=== PATIENT | female | born 1995 | race Caucasian/White ===

== ENCOUNTER 2017-01-05 18:51 | Emergency (ER) | payer SELFPAY ==
[2017-01-05] MEDS ORDERED: OXYCODONE-ACETAMINOPHEN 5-325 MG TABLET PO ONE (19:18)
--- NOTE | 2017-01-05 19:21 | ER Document Report ---
HPI - HPI Patient complains to provider of: Left foot, ankle and knee pain Onset: Just prior to arrival Onset/Duration: Sudden Quality of pain: Throbbing Severity: Moderate Pain Level: 4 Context: Patient states the board on deck collapsed causing her to roll her right foot, ankle and knee. Pain, swelling and bruising. Associated Symptoms: None Exacerbated by: Movement, Walking Relieved by: Denies Similar symptoms previously: No Recently seen / treated by doctor: No - ROS ROS below otherwise negative: Yes Systems Reviewed and Negative: Yes All other systems reviewed and negative - CONSTITUTIONAL Constitutional: DENIES: Fever - EENT EENT: DENIES: Sore Throat - NEURO Neurology: DENIES: Headache - CARDIOVASCULAR Cardiovascular: DENIES: Chest pain - RESPIRATORY Respiratory: DENIES: Trouble Breathing - GASTROINTESTINAL Gastrointestinal: DENIES: Abdominal Pain - REPRODUCTIVE Reproductive: DENIES: : - MUSCULOSKELETAL Musculoskeletal: REPORTS: Extremity pain, Swelling - Right foot - DERM Skin Color: Ecchymosis Skin Problems: None Past Medical History - General Information source: Patient - Social History Smoking Status: Never Smoker Frequency of alcohol use: None Drug Abuse: None Lives with: Family Family History: Reviewed & Not Pertinent, Hyperlipidemia, Malignancy, Other - ovarian cyst Patient has suicidal ideation: No Patient has homicidal ideation: No Neurological Medical History: Reports: Hx Migraine Past Surgical History: Reports: Hx Adenoidectomy, Hx Orthopedic Surgery - Knees , Hx Tonsillectomy - adenoids, Hx Tubal Ligation - Immunizations Immunizations up to date: Yes Hx Diphtheria, Pertussis, Tetanus Vaccination: Yes Vertical Provider Document - CONSTITUTIONAL Agree With Documented VS: Yes General Appearance: WD/WN, Mild Distress - INFECTION CONTROL TRAVEL OUTSIDE OF THE [place] IN LAST 30 DAYS: No - HEENT HEENT: Atraumatic, Normocephalic - RESPIRATORY Respiratory: Breath Sounds Normal, No Respiratory Distress O2 Sat by Pulse Oximetry: 99 - CARDIOVASCULAR Cardiovascular: Regular Rate, Regular Rhythm - GI/ABDOMEN Gastrointestinal: Abdomen Soft - MUSCULOSKELETAL/EXTREMETIES Musculoskeletal/Extremeties: Tender, Edema, Eccymosis - Right lateral foot - NEURO Level of Consciousness: Awake, Alert, Appropriate - DERM Integumentary: Warm, Dry Course - Re-evaluation Re-evalutation: 01/05/17 20:19 X-rays negative and discussed with patient. - Vital Signs Vital signs: Temp Pulse Resp BP Pulse Ox 98.1 F 78 22 H 117/68 99 01/05/17 18:57 01/05/17 18:57 01/05/17 18:57 01/05/17 18:57 01/05/17 18:57 Procedures - Immobilization Right Foot Pre-Proc Neuro Vasc Exam: Normal Immobilizer type: Shimon wrap, Crutches Performed by: PCT Post-Proc Neuro Vasc Exam: Normal Alignment checked and good: Yes Discharge - Discharge Clinical Impression: Right foot sprain Qualifiers: Encounter type: initial encounter Qualified Code(s): S93.601A - Unspecified sprain of right foot, initial encounter Right knee pain Qualifiers: Chronicity: acute Qualified Code(s): M25.561 - Pain in right knee Condition: Good Disposition: HOME, SELF-CARE Instructions: Sprain ([facility]), Use of Crutches ([facility]), Ice & Elevation ([facility]), Oral Narcotic Medication ([facility]) Additional Instructions: Ice and elevate foot OTC ibuprofen 3 times a day as needed for pain Follow-up with your doctor if not better in 1 week return as needed Prescriptions: Oxycodone HCl/Acetaminophen [Percocet 5-325 mg Tablet] 1 - 2 tab PO ASDIR PRN # 15 tablet PRN Reason: For Pain Forms: Return to Work Referrals: MYNOR FULTON MD [Primary Care Provider] - Follow up as needed
--- NOTE | 2017-01-05 20:15 | RADIOLOGY REPORT (SQ) ---
EXAM DESCRIPTION: FOOT RIGHT COMPLETE COMPLETED DATE/TIME: 01/05/2017 8:01 pm REASON FOR STUDY: injury COMPARISON: None. NUMBER OF VIEWS: Three views. TECHNIQUE: AP, lateral and oblique radiographic images acquired of the right foot. LIMITATIONS: None. FINDINGS: MINERALIZATION: Normal. BONES: No acute fracture or dislocation. No worrisome bone lesions. JOINTS: No effusions. SOFT TISSUES: No soft tissue swelling. No foreign body. OTHER: No other significant finding. IMPRESSION: NO RADIOGRAPHIC EVIDENCE OF ACUTE INJURY. TECHNICAL DOCUMENTATION: JOB ID: [id number] [employer]- All Rights Reserved
--- NOTE | 2017-01-05 20:16 | RADIOLOGY REPORT (SQ) ---
EXAM DESCRIPTION: KNEE RIGHT 4 VIEWS COMPLETED DATE/TIME: 01/05/2017 8:01 pm REASON FOR STUDY: injury COMPARISON: None. NUMBER OF VIEWS: Four views. TECHNIQUE: AP, lateral, and both oblique radiographic images acquired of the right knee. LIMITATIONS: None. FINDINGS: MINERALIZATION: Normal. BONES: No acute fracture or dislocation. No worrisome bone lesions. JOINT: No effusion. SOFT TISSUES: No soft tissue swelling. No radio-opaque foreign body. OTHER: No other significant finding. IMPRESSION: NO RADIOGRAPHIC EVIDENCE OF ACUTE INJURY. TECHNICAL DOCUMENTATION: JOB ID: [id number] [employer]- All Rights Reserved
[2017-01-05 20:44] VITALS: BP 123/67
== END 2017-01-05 20:43 | disposition home or self-care (01) ==
LOC: ER 18:51
DX: S93.601A Unspecified sprain of right foot, initial encounter (principal); M25.561 Pain in right knee; M25.572 Pain in left ankle and joints of left foot; X50.1XXA Overexertion from prolonged static or awkward postures, initial encounter
CPT/HCPCS: 99283

== ENCOUNTER 2017-07-02 14:15 | Emergency (ER) | payer SELFPAY ==
[2017-07-02] MEDS ORDERED: IBUPROFEN 800 MG TABLET PO ONE (16:38)
[2017-07-02] MEDS ORDERED: PENICILLIN V POTASSIUM 500 MG TABLET PO ONE (16:38)
--- NOTE | 2017-07-02 16:41 | ER Document Report ---
HPI - HPI Patient complains to provider of: Dental pain, jaw pain Onset: Last week Onset/Duration: Persistent Quality of pain: Sharp Pain Level: 5 Context: Patient complains of pain to bilateral upper jaw for the past week. Patient states pain is worse when she opens her mouth. Patient denies any fever. Associated Symptoms: Other - Dental pain, jaw pain. denies: Fever Exacerbated by: Movement Relieved by: Denies Similar symptoms previously: No Recently seen / treated by doctor: No - ROS ROS below otherwise negative: Yes Systems Reviewed and Negative: Yes All other systems reviewed and negative - CONSTITUTIONAL Constitutional: DENIES: Fever, Chills - EENT Notes: Dental pain - RESPIRATORY Respiratory: DENIES: Coughing - GASTROINTESTINAL Gastrointestinal: DENIES: Nausea, Patient vomiting - REPRODUCTIVE Reproductive: DENIES: : - DERM Skin Color: Normal Skin Problems: None Past Medical History - General Information source: Patient - Social History Smoking Status: Never Smoker Frequency of alcohol use: None Drug Abuse: 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: Family Family History: Reviewed & Not Pertinent, Hyperlipidemia, Malignancy, Other - ovarian cyst - Medical History Medical History: Negative Neurological Medical History: Reports: Hx Migraine Renal/ Medical History: Denies: Hx Peritoneal Dialysis Past Surgical History: Reports: Hx Adenoidectomy, Hx Orthopedic Surgery - Knees , Hx Tonsillectomy - adenoids, Hx Tubal Ligation - Immunizations Immunizations up to date: Yes Hx Diphtheria, Pertussis, Tetanus Vaccination: Yes Vertical Provider Document - CONSTITUTIONAL Agree With Documented VS: Yes Exam Limitations: No Limitations General Appearance: WD/WN, No Apparent Distress - INFECTION CONTROL TRAVEL OUTSIDE OF THE [place] IN LAST 30 DAYS: No - HEENT HEENT: Atraumatic, Normocephalic. negative: Pharyngeal Exudate, Pharyngeal Tenderness, Pharyngeal Erythema, Tympanic Membrane Red, Tympanic Membrane Bulging Mouth Diagram: 1 - Dental decay, tenderness, no gingival abscess, no trismus Notes: Patient with tenderness to TMJ joints bilaterally, no crepitus, normal bite - NECK Neck: Normal Inspection, Supple - RESPIRATORY Respiratory: Breath Sounds Normal, No Respiratory Distress O2 Sat by Pulse Oximetry: 99 - CARDIOVASCULAR Cardiovascular: Regular Rate, Regular Rhythm, No Murmur - BACK Back: Normal Inspection - MUSCULOSKELETAL/EXTREMETIES Musculoskeletal/Extremeties: WENDI WHIPPLE - NEURO Level of Consciousness: Awake, Alert, Appropriate Motor/Sensory: No Motor Deficit - DERM Integumentary: Warm, Dry, No Rash Course - Vital Signs Vital signs: Temp Pulse Resp BP Pulse Ox 99.2 F 87 13 114/60 99 07/02/17 14:19 07/02/17 14:19 07/02/17 14:19 07/02/17 14:19 07/02/17 14:19 Discharge - Discharge Clinical Impression: Toothache TMJ arthralgia Qualifiers: Laterality: bilateral Qualified Code(s): M26.623 - Arthralgia of bilateral temporomandibular joint Condition: Stable Disposition: HOME, SELF-CARE Instructions: Oral Narcotic Medication ([facility]), Penicillin V K ([facility]), Temporomandibular Joint Syndrome ([facility]), Toothache ([facility]) Additional Instructions: Return immediately for any new or worsening symptoms Followup with your primary care provider, call tomorrow to make a followup appointment Follow-up with a dental care provider Prescriptions: Acetaminophen with Codeine [Acetaminophen-Cod #3 Tablet] 1 each PO Q6 PRN #15 tablet PRN Reason: Naproxen [Naprosyn 250 Nmg Tablet] 1 tab PO BID #14 tablet Penicillin V Potassium [Penicillin Vk 500 mg Tablet] 500 mg PO BID #20 tablet Forms: Return to Work Referrals: [facility] [Provider Group] - Follow up as needed
[2017-07-02 16:53] VITALS: BP 110/65
== END 2017-07-02 16:53 | disposition home or self-care (01) ==
LOC: ER 14:15
DX: K08.9 Disorder of teeth and supporting structures, unspecified (principal); M26.623 Arthralgia of bilateral temporomandibular joint; Z98.51 Tubal ligation status
CPT/HCPCS: 99282

== ENCOUNTER 2018-06-12 19:28 | Emergency (ER) | payer SELFPAY ==
[2018-06-12 19:43] VITALS: BP 117/63
[2018-06-12] MEDS ORDERED: LIDOCAINE 2% VISCOUS SOLN 20 ML UDCUP PO ONE (20:08)
--- NOTE | 2018-06-12 20:17 | ER Document Report ---
HPI - HPI Pain Level: 5 Notes: Patient is a 22-year-old female who presents to the ED complaining of right lower dental pain #301 week. She has not noticed any obvious abscess or purulent discharge. Patient states that she is still able to eat and drink, but does have a decreased p.o. intake due to the pain. She has tried some over- the-counter meds with minimal relief. No other concerns or complaints. She has not schedule an appointment with a dentist. Overall, pt states she has had issues with her teeth for months. Denies any headache, fever, head injury, neck pain, hoarseness, drooling, URI, sore throat, chest pain, palpitations, syncope, cough, shortness of breath, wheeze, dyspnea, abdominal pain, nausea/ vomiting/diarrhea, urinary retention, dysuria, hematuria, or rash. - ROS Systems Reviewed and Negative: Yes All other systems reviewed and negative - REPRODUCTIVE Reproductive: DENIES: : Past Medical History - Social History Smoking Status: Unknown if Ever Smoked Family History: Reviewed & Not Pertinent, Hyperlipidemia, Malignancy, Other - ovarian cyst Neurological Medical History: Reports: Hx Migraine Renal/ Medical History: Denies: Hx Peritoneal Dialysis Past Surgical History: Reports: Hx Adenoidectomy, Hx Orthopedic Surgery - Knees , Hx Tonsillectomy - adenoids, Hx Tubal Ligation - Immunizations Immunizations up to date: Yes Hx Diphtheria, Pertussis, Tetanus Vaccination: Yes Vertical Provider Document - CONSTITUTIONAL Agree With Documented VS: Yes Notes: PHYSICAL EXAMINATION: GENERAL: Well-appearing, well-nourished and in no acute distress. HEAD: Atraumatic, normocephalic. EYES: Pupils equal round and reactive to light, extraocular movements intact, sclera anicteric, conjunctiva are normal. ENT: Nares patent and without discharge. oropharynx clear without exudates. No tonsilar hypertrophy or erythema. Moist mucous membranes. No sinus tenderness. Uvula midline. No palatine shift. No tongue protrusion. No respiratory compromise. Mouth: Poor dentition. + mild gingivitis. No obvious abscess or discharge noted. No facial swelling. + tenderness to tooth #30. NECK: Normal range of motion, supple without lymphadenopathy. No rigidity/ meningismus. LUNGS: Breath sounds clear to auscultation bilaterally and equal. No wheezes rales or rhonchi. HEART: Regular rate and rhythm without murmurs, rubs, gallops. NEUROLOGICAL: Cranial nerves grossly intact. Normal speech, normal gait. Normal sensory, motor exams PSYCH: Normal mood, normal affect. SKIN: Warm, Dry, normal turgor, no rashes or lesions noted. - INFECTION CONTROL TRAVEL OUTSIDE OF THE [place] IN LAST 30 DAYS: No Course - Re-evaluation Re-evalutation: 06/12/18 20:16 Patient is an afebrile, well-hydrated, 22-year-old female who presents to the ED with dental pain, suspect nerve root etiology versus infection. Vitals are acceptable. PE is otherwise unremarkable. No I&D, labs, or imaging warranted at this time based on H&P. Viscous lidocaine dispensed today. I will send her home with a prescription for penicillin. Low suspicion for any meningitis, sepsis, peritonsillar/pharyngeal abscess, respiratory compromise, Peña's, temporal arteritis, or other emergent systemic condition at this time. Patient is aware this condition can change from initial presentation and he needs to monitor symptoms closely. Conservative measures otherwise for symptoms. Call to schedule an appointment with a dentist for further evaluation and management. Recheck with your PCM this week as well. Return to the ED with any worsening/concerning symptoms otherwise as reviewed in discharge. Patient is in agreement. - Vital Signs Vital signs: Temp Pulse Resp BP Pulse Ox 98.4 F 67 16 117/63 98 06/12/18 19:41 06/12/18 19:41 06/12/18 19:41 06/12/18 19:41 06/12/18 19:41 Discharge - Discharge Clinical Impression: Pain, dental Condition: Stable Disposition: HOME, SELF-CARE Instructions: Penicillin V K ([facility]), Toothache ([facility]), Dentist Additional Instructions: [place] and floss twice daily Maintain fluid intake Take antibiotics as directed Mouthwash, salt water gargles, peroxide rinse as needed Tylenol/ibuprofen as needed Recheck with PCM this week Call today/tomorrow and schedule an appointment with your dentist for further evaluation Return to the ED with any worsening symptoms and/or development of fever, headache, facial swelling, swelling of lips/tongue/throat, trouble swallowing, drooling, hoarseness, neck pain/stiffness, chest pain, palpitations, syncope, shortness of breath, trouble breathing, abdominal pain, n/v/d, numbness/tingling , or other worsening symptoms that are concerning to you. Prescriptions: Penicillin V Potassium [Penicillin Vk 250 mg Tablet] 500 mg PO BID #40 tablet Referrals: MYNOR FULTON MD [Primary Care Provider] - Follow up as needed [facility] [Provider Group] - Follow up in 3-5 days
== END 2018-06-12 20:15 | disposition home or self-care (01) ==
LOC: ER 19:28
DX: K08.89 Other specified disorders of teeth and supporting structures (principal); K05.10 Chronic gingivitis, plaque induced
CPT/HCPCS: 99282; J3490

== ENCOUNTER 2019-01-02 12:55 | Emergency (ER) | payer SELFPAY ==
[2019-01-02] MEDS ORDERED: KETOROLAC TROMETHAMINE INJ/PF 30 MG/1 ML SDV IV ONE (13:23)
[2019-01-02] MEDS ORDERED: ONDANSETRON HCL INJ/PF 4 MG/2 ML SDV IV ONE (13:24)
--- NOTE | 2019-01-02 13:24 | ER Document Report ---
ED Medical Screen (RME) - General Chief Complaint: Abdominal Pain Stated Complaint: ABDOMINAL PAIN Time Seen by Provider: 01/02/19 13:20 Primary Care Provider: MYNOR FULTON MD [Primary Care Provider] - Follow up as needed Mode of Arrival: Ambulatory Information source: Patient Notes: Patient is otherwise healthy 23-year-old female presented to the [facility] with 3-day history of right flank and right lower quadrant pain. Patient denies any urinary frequency or dysuria. She reports nausea with vomiting but denies diarrhea. Denies fever chills. Exam: Tenderness to palpation the right lower quadrant. I have greeted and performed a rapid initial assessment of this patient. A comprehensive ED assessment and evaluation of the patient, analysis of test results and completion of the medical decision making process will be conducted by additional ED providers. Dictation of this chart was performed using voice recognition software; therefore, there may be some unintended grammatical errors. TRAVEL OUTSIDE OF THE [place] IN LAST 30 DAYS: No - Related Data Allergies/Adverse Reactions: No Known Allergies Allergy (Verified 01/02/19 12:57) Past Medical History Neurological Medical History: Reports: Hx Migraine Renal/ Medical History: Denies: Hx Peritoneal Dialysis Past Surgical History: Reports: Hx Adenoidectomy, Hx Orthopedic Surgery - Knees, Hx Tonsillectomy - adenoids, Hx Tubal Ligation - Immunizations Immunizations up to date: Yes Hx Diphtheria, Pertussis, Tetanus Vaccination: Yes Physical Exam - Vital signs Vitals: Temp Pulse Resp BP Pulse Ox 98.3 F 83 15 105/65 97 01/02/19 13:01 01/02/19 13:01 01/02/19 13:01 01/02/19 13:01 01/02/19 13:01 Course - Vital Signs Vital signs: Temp Pulse Resp BP Pulse Ox 98.3 F 83 15 105/65 97 01/02/19 13:01 01/02/19 13:01 01/02/19 13:01 01/02/19 13:01 01/02/19 13:01 Doctor's Discharge - Discharge Referrals: MYNOR FULTON MD [Primary Care Provider] - Follow up as needed
[2019-01-02 14:25] LABS: ABSOLUTE EOSINOPHILS # (AUTO) 0.6 10^3/uL (0.0-0.6); ABSOLUTE LYMPHOCYTES (AUTO) 1.9 10^3/uL (0.5-4.7); ABSOLUTE MONOCYTES (AUTO) 0.3 10^3/uL (0.1-1.4); ABSOLUTE NEUT (AUTO) 2.9 10^3/uL (1.7-8.2); BASOPHILS % (AUTO) 0.6 % (0-2); EOSINOPHILS % (AUTO) 11.2 % (0-6); HEMATOCRIT 40.5 % (36.0-47.0); HEMOGLOBIN 13.8 g/dL (12.0-15.5); LYMPHOCYTES % (AUTO) 32.5 % (13-45); MEAN CORPUSCULAR HEMOGLOBIN 29.1 pg (27.0-33.4); MEAN CORPUSCULAR HGB CONC 34.1 g/dL (32.0-36.0); MEAN CORPUSCULAR VOLUME 85 fl (80-97); MONOCYTES % (AUTO) 5.8 % (3-13); PLATELET COUNT 243 10^3/uL (150-450); RED BLOOD COUNT 4.74 10^6/uL (3.72-5.28); SEGMENTED NEUTROPHILS % (AUTO) 49.9 % (42-78); TOTAL CELLS COUNTED % (AUTO) 100 %; WHITE BLOOD COUNT 5.8 10^3/uL (4.0-10.5)
[2019-01-02 14:34] LABS: AMORPHOUS SEDIMENT,URINE TRACE /HPF; APPEARANCE,URINE SLIGHTLY-CLOUDY; BILIRUBIN,URINE NEGATIVE (NEGATIVE); COLOR,URINE YELLOW; GLUCOSE, URINE NEGATIVE (NEGATIVE); KETONES,URINE NEGATIVE (NEGATIVE); LEUKOCYTE ESTERASE,URINE MODERATE (NEGATIVE); NITRITE,URINE NEGATIVE (NEGATIVE); PROTEIN,URINE NEGATIVE (NEGATIVE); URINE SPECIFIC GRAVITY 1.012; UROBILINOGEN,URINE NEGATIVE mg/dL (<2.0)
[2019-01-02 14:47] LABS: ALANINE AMINOTRANSFERASE 37 U/L (9-52); ALBUMIN 4.2 g/dL (3.5-5.0); ALKALINE PHOSPHATASE 51 U/L (38-126); ANION GAP 10 (5-19); ASPARTATE AMINO TRANSFERASE 37 U/L (14-36); BILIRUBIN,DIRECT 0.2 mg/dL (0.0-0.4); BLOOD UREA NITROGEN 12 mg/dL (7-20); CALCIUM 9.5 mg/dL (8.4-10.2); CARBON DIOXIDE 25 mmol/L (22-30); CHLORIDE 105 mmol/L (98-107); GLUCOSE 88 mg/dL (75-110); POTASSIUM 4.4 mmol/L (3.6-5.0); SODIUM 140.2 mmol/L (137-145); TOTAL PROTEIN 7.5 g/dL (6.3-8.2)
[2019-01-02] MEDS ORDERED: MORPHINE SULFATE 10 MG/ML INJ IV ONE (15:39)
[2019-01-02] MEDS ORDERED: METOCLOPRAMIDE HCL INJ/PF 10 MG/2 ML SDV IV ONE (15:39)
[2019-01-02] MEDS ORDERED: DIPHENHYDRAMINE HCL 50 MG/ML VIAL IV ONE (15:39)
--- NOTE | 2019-01-02 16:08 | ER Document Report ---
ED General - General Chief Complaint: Abdominal Pain Stated Complaint: ABDOMINAL PAIN Time Seen by Provider: 01/02/19 13:20 Primary Care Provider: MYNOR FULTON MD [ACTIVE STAFF] - Follow up in 3-5 days Mode of Arrival: Ambulatory Information source: Patient, [facility] Records Notes: 23-year-old female with no significant past medical history presents with 3 days of right flank pain and right lower quadrant pain. Patient reports the pain as being severe, stabbing and constant. Patient reports persistent nausea, vomiting that started today. She is unable to tolerate any p.o. She denies any fever, chills, vaginal discharge, dysuria. She does report increased urinary frequency. Patient is not currently sexually active. She denies concern for STD. She denies any history of kidney stones. TRAVEL OUTSIDE OF THE [place] IN LAST 30 DAYS: No - HPI Onset: Other Onset/Duration: Gradual, Persistent, Worse Quality of pain: Sharp, Stabbing Severity: Moderate Pain Level: 2 Associated symptoms: Body/muscle aches, Nausea, Vomiting, Other - Flank pain. denies: Chest pain, Nonproductive cough, Productive cough, Diarrhea, Fever Exacerbated by: Movement, Food Relieved by: Denies Similar symptoms previously: No Recently seen / treated by doctor: No - Related Data Allergies/Adverse Reactions: No Known Allergies Allergy (Verified 01/02/19 12:57) Past Medical History - General Information source: Patient - Social History Smoking Status: Never Smoker Frequency of alcohol use: None Drug Abuse: None Lives with: Family Family History: Reviewed & Not Pertinent, Hyperlipidemia, Malignancy, Other - ovarian cyst Patient has suicidal ideation: No Patient has homicidal ideation: No - Medical History Medical History: Negative Neurological Medical History: Reports: Hx Migraine Renal/ Medical History: Denies: Hx Peritoneal Dialysis Past Surgical History: Reports: Hx Adenoidectomy, Hx Orthopedic Surgery - Knees, Hx Tonsillectomy - adenoids, Hx Tubal Ligation - Immunizations Immunizations up to date: Yes Hx Diphtheria, Pertussis, Tetanus Vaccination: Yes Review of Systems - Review of Systems Notes: REVIEW OF SYSTEMS: CONSTITUTIONAL : Denies fever, chills, or sweats. Denies recent illness. Denies weight loss, recent hospitalizations. EENT: Denies visual changes, eye pain. Denies sore throat, oral lesions, difficulty swallowing. CARDIOVASCULAR: Denies chest pain. Denies palpitations. Denies lower extremity edema. RESPIRATORY: Denies cough. Denies shortness of breath, wheezing. GASTROINTESTINAL: Denies abdominal distention. Denies diarrhea. Denies blood in vomitus, stools, or per rectum. Denies black, tarry stools. Denies constipation. GENITOURINARY: Denies difficulty urinating, painful urination, frequency, blood in urine, or vaginal discharge. MUSCULOSKELETAL: Denies neck pain or stiffness. Denies joint pain or swelling. SKIN: Denies rash, lesions or sores. HEMATOLOGIC : Denies easy bruising or bleeding. LYMPHATIC: Denies swollen glands. NEUROLOGICAL: Denies confusion or altered mental status. Denies loss of consciousness. Denies dizziness or lightheadedness. Denies headache. Denies weakness or paralysis. Denies problems difficulty with ambulation, slurred speech. Denies sensory loss, numbness, or tingling. Denies seizures. PSYCHIATRIC: Denies anxiety or stress. Denies depression, suicidal ideation, or homicidal ideation. Denies visual or auditory hallucinations. Physical Exam - Vital signs Vitals: Temp Pulse Resp BP Pulse Ox 98.3 F 80 15 105/64 97 01/02/19 13:00 01/02/19 13:00 01/02/19 13:00 01/02/19 13:01/02/19 13:00 - Notes Notes: PHYSICAL EXAMINATION: GENERAL: Well-appearing, well-nourished and in no acute distress. HEAD: Atraumatic, normocephalic. EYES: Pupils equal round and reactive to light, extraocular movements intact, conjunctiva are normal. ENT: Nares patent, oropharynx clear without exudates. Moist mucous membranes. NECK: Normal range of motion, supple without lymphadenopathy LUNGS: Breath sounds clear to auscultation bilaterally and equal. No wheezes rales or rhonchi. HEART: Regular rate and rhythm without murmurs ABDOMEN: Soft, tenderness with palpation to the right lower quadrant. No gua rding, no rebound. No masses appreciated. Right flank tenderness. Female : deferred Musculoskeletal: Normal range of motion, no pitting or edema. No cyanosis. NEUROLOGICAL: Cranial nerves grossly intact. Normal speech, normal gait. Normal sensory, motor exams PSYCH: Normal mood, normal affect. SKIN: Warm, Dry, normal turgor, no rashes or lesions noted. Course - Re-evaluation Re-evalutation: 01/03/19 01:49 Laboratory 01/02/19 01/02/19 01/02/19 14:02 14:02 14:02 WBC 5.8 RBC 4.74 Hgb 13.8 Hct 40.5 MCV 85 MCH 29.1 MCHC 34.1 RDW 13.0 Plt Count 243 Seg Neutrophils % 49.9 Lymphocytes % 32.5 Monocytes % 5.8 Eosinophils % 11.2 H Basophils % 0.6 Absolute Neutrophils 2.9 Absolute Lymphocytes 1.9 Absolute Monocytes 0.3 Absolute Eosinophils 0.6 Absolute Basophils 0.0 Sodium 140.2 Potassium 4.4 Chloride 105 Carbon Dioxide 25 Anion Gap 10 BUN 12 Creatinine 0.46 L Est GFR ( Amer) > 60 Est GFR (Non-Af Amer) > 60 Glucose 88 Calcium 9.5 Total Bilirubin 1.0 Direct Bilirubin 0.2 Neonat Total Bilirubin Not Reportable Neonat Direct Bilirubin Not Reportable Neonat Indirect Bili Not Reportable AST 37 H ALT 37 Alkaline Phosphatase 51 Total Protein 7.5 Albumin 4.2 Serum HCG, Qual NEGATIVE Urine Color Urine Appearance Urine pH Ur Specific [place] Urine Protein Urine Glucose (UA) Urine Ketones Urine Blood Urine Nitrite Urine Bilirubin Urine Urobilinogen Ur Leukocyte Esterase Urine WBC (Auto) Urine RBC (Auto) Squamous Epi Cells Auto Amorphous Sediment Auto Urine Mucus (Auto) Urine Ascorbic Acid 01/02/19 14:02 WBC RBC Hgb Hct MCV MCH MCHC RDW Plt Count Seg Neutrophils % Lymphocytes % Monocytes % Eosinophils % Basophils % Absolute Neutrophils Absolute Lymphocytes Absolute Monocytes Absolute Eosinophils Absolute Basophils Sodium Potassium Chloride Carbon Dioxide Anion Gap BUN Creatinine Est GFR ( Amer) Est GFR (Non-Af Amer) Glucose Calcium Total Bilirubin Direct Bilirubin Neonat Total Bilirubin Neonat Direct Bilirubin Neonat Indirect Bili AST ALT Alkaline Phosphatase Total Protein Albumin Serum HCG, Qual Urine Color YELLOW Urine Appearance SLIGHTLY-CLOUDY Urine pH 8.0 Ur Specific [place] 1.012 Urine Protein NEGATIVE Urine Glucose (UA) NEGATIVE Urine Ketones NEGATIVE Urine Blood NEGATIVE Urine Nitrite NEGATIVE Urine Bilirubin NEGATIVE Urine Urobilinogen NEGATIVE Ur Leukocyte Esterase MODERATE H Urine WBC (Auto) 7 Urine RBC (Auto) 1 Squamous Epi Cells Auto 1 Amorphous Sediment Auto TRACE Urine Mucus (Auto) RARE Urine Ascorbic Acid NEGATIVE Abdomen/Pelvis CT 01/02/19 15:39 IMPRESSION: NO SIGNIFICANT OR ACUTE FINDING IN THE ABDOMEN OR PELVIS ON CT SCAN WITH IV CONTRAST. Temp Pulse Resp BP Pulse Ox 97.9 F 70 16 103/62 100 01/02/19 20:13 01/02/19 20:13 01/02/19 20:13 01/02/19 20:13 01/02/19 20:13 01/03/19 21:40 Patient presents with symptoms consistent with an acute cystitis. Vitals wnl. No history of fever, flank pain, or constitution symptoms to suggest ascending infection at this time. Patient is well in appearance, tolerating oral intake without difficulty. No focal abdominal tenderness to suggest acute appendicitis, biliary pathology, acute pancreatitis, tubo-ovarian abscesses, or pelvic inflammatory disease. Patient will be started on antibiotics at this time. A culture has been sent. They will be discharged with return precautions and follow-up recommendations. I have had a risks and benefits conversation with the patient regarding CT imaging of the abdomen and pelvis at this time. 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 We discussed the risks of radiation to the abdomen and pelvis. We discussed the alternative of close follow-up with their primary care physician for a recheck of the abdomen within 24 hours as well as reasons to return to the emergency department. After this conversation, the patient has elected to avoid CT esperanza ging of the abdomen and pelvis at this time. They have capacity. They have verbalized the importance of close follow-up as well as reasons to return to the emergency department including worsening abdominal pain, fever, persistent vomiting, or any other symptoms that are worrisome to them. - Vital Signs Vital signs: Temp Pulse Resp BP Pulse Ox 97.9 F 70 16 103/62 100 01/02/19 20:15 01/02/19 20:15 01/02/19 20:15 01/02/19 20:15 01/02/19 20:15 - Laboratory Result Diagrams: 01/02/19 14:02 01/02/19 14:02 Laboratory results interpreted by me: 01/02/19 01/02/19 01/02/19 14:02 14:02 14:02 Eosinophils % 11.2 H Creatinine 0.46 L AST 37 H Ur Leukocyte Esterase MODERATE H - Diagnostic Test Radiology reviewed: Image reviewed, Reports reviewed Discharge - Discharge Clinical Impression: Right lower quadrant abdominal pain, Right flank pain UTI (urinary tract infection) Qualifiers: Urinary tract infection type: site unspecified Hematuria presence: without hematuria Qualified Code(s): N39.0 - Urinary tract infection, site not specified Condition: Good Disposition: HOME, SELF-CARE Instructions: Abdominal Pain ([facility]), Flank Pain ([facility]), Observation for Appendicitis ([facility]), Urinary Tract Infection ([facility]) Additional Instructions: Your urine shows findings consistent with a urinary tract infection. Please take all the antibiotics as directed even if your symptoms have improved. Please follow-up with your primary care physician as needed. Return to emergency room if you develop fever >101F, persistent vomiting, become lethargic, have severe pain in your sides, or any other symptoms that are concerning to you. Prescriptions: Ketorolac Tromethamine [Toradol 10 mg Tablet] 10 mg PO Q6HP PRN #12 tablet PRN Reason: Cephalexin Monohydrate [Keflex 500 mg Capsule] 500 mg PO BID 5 Days #10 capsule Ondansetron [Zofran Odt 4 mg Tablet] 1 - 2 tab PO Q4H PRN #15 tab.rapdis PRN Reason: For Nausea/Vomiting Referrals: MYNOR FULTON MD [ACTIVE STAFF] - Follow up in 3-5 days
--- NOTE | 2019-01-02 18:03 | RADIOLOGY REPORT (SQ) ---
EXAM DESCRIPTION: CT ABD/PELVIS WITH IV ONLY COMPLETED DATE/TIME: 01/02/2019 5:44 pm REASON FOR STUDY: rlq and r flank pain COMPARISON: None. TECHNIQUE: CT scan of the abdomen and pelvis performed using helical scanning technique with dynamic intravenous contrast injection. No oral contrast. Images reviewed with lung, soft tissue, and bone windows. Reconstructed coronal and sagittal MPR images reviewed. Delayed images for evaluation of the urinary system also acquired. All images stored on PACS. All CT scanners at this facility use dose modulation, iterative reconstruction, and/or weight based d osing when appropriate to reduce radiation dose to as low as reasonably achievable (ALARA). [facility]: Dose Right [facility]: CareDose [facility]: Dose Right [facility]: Teradose 4D [facility]: SocialDiabetes CONTRAST TYPE AND DOSE: contrast/concentration: Isovue 350.00 mg/ml; Total Contrast Delivered: 89.0 ml; Total Saline Delivered: 70.0 ml RENAL FUNCTION: GFR > 60. RADIATION DOSE: CT Rad equipment meets quality standard of care and radiation dose reduction techniq ues were employed. CTDIvol: 8.4 - 10.8 mGy. DLP: 991 mGy-cm.. LIMITATIONS: None. FINDINGS: LOWER CHEST: No significant findings. No nodules or infiltrates. LIVER: Normal size. No masses. No dilated ducts. SPLEEN: Normal size. No focal lesions. PANCREAS: No masses. No significant calcifications. No adjacent inflammation or peripancreatic fluid collections. Pancreatic duct not dilated. GALLBLADDER: No identified stones by CT criteria. No inflammatory changes to suggest cholecystitis. ADRENAL GLANDS: No significant masses or asymmetry. RIGHT KIDNEY AND URETER: No solid masses. No significant calcifications. No hydronephrosis or hyd roureter. LEFT KIDNEY AND URETER: No solid masses. No significant calcifications. No hydronephrosis or hydr oureter. AORTA AND VESSELS: No aneurysm. No dissection. Renal arteries, SMA, celiac without stenosis. RETROPERITONEUM: No retroperitoneal adenopathy, hemorrhage or masses. BOWEL AND PERITONEAL CAVITY: No masses or inflammatory changes. No free fluid or peritoneal masses. APPENDIX: Normal. PELVIS: No mass. No free fluid. Normal bladder. ABDOMINAL WALL: No masses. No hernias. BONES: No significant or acute findings. OTHER: No other significant finding. IMPRESSION: NO SIGNIFICANT OR ACUTE FINDING IN THE ABDOMEN OR PELVIS ON CT SCAN WITH IV CONTRAST. TECHNICAL DOCUMENTATION: JOB ID: [id number] Quality ID # [id number]: Final reports with documentation of one or more dose reduction techniques (e.g., Au tomated exposure control, adjustment of the mA and/or kV according to patient size, use of iterative reconstruction technique) 2010 [employer]- All Rights Reserved Reading location - IP/workstation name: [email or web address]
[2019-01-02] MEDS ORDERED: CEPHALEXIN 500 MG CAPSULE PO ONE (18:31)
[2019-01-02 20:22] VITALS: BP 103/62
== END 2019-01-02 20:20 | disposition home or self-care (01) ==
LOC: ER 12:55
DX: N39.0 Urinary tract infection, site not specified (principal); R10.31 Right lower quadrant pain; R11.2 Nausea with vomiting, unspecified; M79.10 Myalgia, unspecified site; Z98.51 Tubal ligation status
CPT/HCPCS: 99284; 96374; 96375; 36415; 84703; 85025; 80053; 81001; 74177; J1200; J1885; J2765; J2270; J2405

== ENCOUNTER 2019-08-24 09:01 | Emergency (ER) | payer SELFPAY ==
[2019-08-24] MEDS ORDERED: KETOROLAC TROMETHAMINE INJ/PF 30 MG/1 ML SDV IM ONE (11:00)
--- NOTE | 2019-08-24 11:05 | ER Document Report ---
HPI - HPI Time Seen by Provider: 08/24/19 10:54 Pain Level: 4 Context: Patient is a 23-year-old female who presents the emergency department with a chief complaint of low back pain. Patient reports she developed low back pain about 4 days ago that has gradually gotten worse over the past 2 days. Patient reports she is taken Tylenol, uses warm compresses and took a Benadryl last night to help her sleep and she did have not have relief. Patient reports that there was no injury or fall. Patient denies any recent heavy lifting, stretching or any new exercise. Patient reports she just got off her menstrual cycle. Patient denies a history of back problems. Patient has numbness or tingling around the groin or rectal region. Patient denies IV drug use. - REPRODUCTIVE Reproductive: DENIES: : Past Medical History - General Information source: Patient - Social History Smoking Status: Never Smoker Frequency of alcohol use: Rare Drug Abuse: None Lives with: Family Family History: Reviewed & Not Pertinent, Hyperlipidemia, Malignancy, Other - ovarian cyst Patient has suicidal ideation: No Patient has homicidal ideation: No - Past Medical History Cardiac Medical History: Reports: None Pulmonary Medical History: Reports: None EENT Medical History: Reports: None Neurological Medical History: Reports: Hx Migraine Endocrine Medical History: Reports: None Renal/ Medical History: Reports: None. Denies: Hx Peritoneal Dialysis Malignancy Medical History: Reports: None GI Medical History: Reports: None Musculoskeletal Medical History: Reports None Skin Medical History: Reports None Psychiatric Medical History: Reports: None Traumatic Medical History: Reports: None Infectious Medical History: Reports: None Past Surgical History: Reports: Hx Adenoidectomy, Hx Orthopedic Surgery - Knees, Hx Tonsillectomy - adenoids, Hx Tubal Ligation - Immunizations Immunizations up to date: Yes Hx Diphtheria, Pertussis, Tetanus Vaccination: Yes Vertical Provider Document - CONSTITUTIONAL Agree With Documented VS: Yes Exam Limitations: No Limitations General Appearance: No Apparent Distress - INFECTION CONTROL TRAVEL OUTSIDE OF THE [place] IN LAST 30 DAYS: No - HEENT HEENT: Atraumatic, Normal ENT Exam, Normocephalic, PERRLA - NECK Neck: Normal Inspection - RESPIRATORY Respiratory: Breath Sounds Normal, No Respiratory Distress - CARDIOVASCULAR Cardiovascular: Regular Rate, Regular Rhythm - BACK Back: Normal Inspection Notes: Patient has diffuse minimal tenderness to the lumbar muscles. There is no lumbar midline tenderness with palpation. There is no cervical or thoracic midline tenderness with palpation. No CVA tenderness. - MUSCULOSKELETAL/EXTREMETIES Musculoskeletal/Extremeties: FROM, Non-Tender Notes: Patient has a steady gait. No difficulty ambulating. - NEURO Level of Consciousness: Awake, Alert, Appropriate - DERM Integumentary: Warm, Dry, No Rash Course - Re-evaluation Re-evalutation: 08/24/19 11:04 I do not believe that imaging is necessary at this time as there is no injury or fall. Will obtain a urinalysis to rule out urinary tract infection. We will give the patient a shot of Toradol. Will reevaluate. Patient updated on plan of care. 08/24/19 12:20 Patient reports that her lower back pain has subsided after receiving the Toradol injection. We will give the patient a few muscle relaxers to go home with as well as anti-inflammatories. I did inform the patient do not drive or operate heavy machinery while on the muscle relaxer if she needs it. Patient verbalized understanding. Patient encouraged to rest. - Vital Signs Vital signs: Temp Pulse Resp BP Pulse Ox 99.7 F 101 H 18 141/75 H 100 08/24/19 09:20 08/24/19 09:20 08/24/19 09:20 08/24/19 09:20 08/24/19 09:20 - Laboratory Laboratory results interpreted by me: 08/24/19 12:20 Laboratory 08/24/19 11:11 Urine Color YELLOW Urine Appearance CLEAR Urine pH 6.0 Ur Specific [place] 1.026 Urine Protein NEGATIVE Urine Glucose (UA) NEGATIVE Urine Ketones 20 H Urine Blood NEGATIVE Urine Nitrite NEGATIVE Urine Bilirubin NEGATIVE Urine Urobilinogen NEGATIVE Ur Leukocyte Esterase TRACE H Urine WBC (Auto) 3 Urine RBC (Auto) 2 Urine Bacteria (Auto) TRACE Squamous Epi Cells Auto 2 Urine Mucus (Auto) OCC Urine Ascorbic Acid NEGATIVE Discharge - Discharge Clinical Impression: Low back pain Qualifiers: Chronicity: acute Back pain laterality: bilateral Sciatica presence: without sciatica Qualified Code(s): M54.5 - Low back pain Condition: Stable Disposition: HOME, SELF-CARE Additional Instructions: *Today was seen in the emergency department for low back pain. We have given you an injection of Toradol which is an anti-inflammatory that did seem to help subside your discomfort. I will give you a prescription for Toradol, take only as prescribed. I will also give you a few doses of Flexeril which is a muscle relaxer. Do not drive or operate heavy machinery while on this medication. Please rest over the next few days. Please return the emergency department if you develop any new or worsening symptoms. We did check your urinalysis which did not show any signs of infection. Low Back Pain Three out of every four people will have an episode of disabling back pain during their lifetime. Most commonly the pain is due to straining of the muscles and ligaments in the low back. Usual treatment includes: (1) Rest on a firm surface. Avoid lying on your stomach. (2) Ice pack the painful area. After a few days, gentle heat may be used intermittently to relax the area, or ice packs can be continued. (3) Medication may be needed -- muscle relaxers and antiinflammatory medicines are commonly used. (4) As the back improves, exercises are prescribed to strengthen the back and abdominal muscles. Your doctor will advise you on the proper care for your back at each stage in your recovery. You may be better in a few days -- or healing may take several weeks. If new symptoms of a "herniated disc" (radiation of pain, numbness, or tingling down the back of the leg or weakness in the leg) occur, you should be re-examined. Further testing may be necessary. Prescriptions: Cyclobenzaprine HCl [Flexeril 10 mg Tablet] 10 mg PO TIDP PRN #12 tab PRN Reason: Ketorolac Tromethamine [Toradol 10 mg Tablet] 10 mg PO Q8 #12 tablet Referrals: [facility] [Provider Group] - Follow up as needed
[2019-08-24 11:43] LABS: APPEARANCE,URINE CLEAR; BILIRUBIN,URINE NEGATIVE (NEGATIVE); COLOR,URINE YELLOW; GLUCOSE, URINE NEGATIVE (NEGATIVE); KETONES,URINE 20 mg/dL (NEGATIVE); LEUKOCYTE ESTERASE,URINE TRACE (NEGATIVE); NITRITE,URINE NEGATIVE (NEGATIVE); PROTEIN,URINE NEGATIVE (NEGATIVE); URINE SPECIFIC GRAVITY 1.026; UROBILINOGEN,URINE NEGATIVE mg/dL (<2.0)
[2019-08-24 12:18] VITALS: BP 99/57
== END 2019-08-24 12:27 | disposition home or self-care (01) ==
LOC: ER 09:01
DX: M54.5 Low back pain (principal)
CPT/HCPCS: 99283; 96374; 81001; J1885

== ENCOUNTER → 2019-11-27 | Outpatient (CLI) | payer SELFPAY ==
--- NOTE | 2019-11-27 16:41 | RADIOLOGY REPORT (SQ) ---
EXAM DESCRIPTION: U/S OB 14+ TRNABD 1GES W/O DOP IMAGES COMPLETED DATE/TIME: 11/27/2019 4:18 pm REASON FOR STUDY: (Z34.82)ENCOUNTER FOR SUPRVSN OF NORMAL , SECOND TRIMESTER Z34.[address] FOR SUPRVSN OF NORMAL , SECOND TRI COMPARISON: None. TECHNIQUE: Limited transabdominal grayscale ultrasound for evaluation of specific requested obstetri nikky parameters. LIMITATIONS: None. FINDINGS: CERVICAL LENGTH: 3.2 cm. Closed. BOWEN: 10.9 cm. FHR: 147 beats per minute. PRESENTATION: Breech. PLACENTA: Anterior location. ANATOMY: Not assessed OTHER: Estimated weight is 88 g. estimated due date is 05/26/2020. Estimated gestational age i s 14 weeks 1 day. IMPRESSION: LIMITED OBSTETRICAL ULTRASOUND WITH MEASURED PARAMETERS DELINEATED ABOVE. Trimester of : Second trimester - 13 weeks 1 day to 27 weeks 6 days. TECHNICAL DOCUMENTATION: JOB ID: [id number] 2010 [employer]- All Rights Reserved Reading location - IP/workstation name: [email or web address]
== END ==
LOC: RAD 15:16
PROVIDERS: ATTEND Midwife
DX: Z34.82 Encounter for supervision of other normal pregnancy, second trimester (principal); Z3A.14 14 weeks gestation of pregnancy
CPT/HCPCS: 76805

== ENCOUNTER 2019-12-24 18:29 | Outpatient (CLI) | payer SELFPAY ==
[2019-12-24 19:17] LABS: APPEARANCE,URINE CLEAR; BILIRUBIN,URINE NEGATIVE (NEGATIVE); COLOR,URINE YELLOW; GLUCOSE, URINE NEGATIVE (NEGATIVE); KETONES,URINE NEGATIVE (NEGATIVE); LEUKOCYTE ESTERASE,URINE MODERATE (NEGATIVE); NITRITE,URINE NEGATIVE (NEGATIVE); PROTEIN,URINE NEGATIVE (NEGATIVE); URINE SPECIFIC GRAVITY 1.016; UROBILINOGEN,URINE NEGATIVE mg/dL (<2.0)
[2019-12-24 19:18] LABS: BACTERIA (WET MOUNT) 4+ BACTERIA SEEN; EPITHELIALS (WET MOUNT) 4+ EPITHELIALS SEEN; RBCS (WET MOUNT) FEW RBCS SEEN; T.VAGINALIS (WET MOUNT) NO TRICHOMONAS SEEN; WBCS (WET MOUNT) 3+ WBCS SEEN; YEAST (WET MOUNT) NO YEAST SEEN
[2019-12-24 19:32] LABS: URINE AMPHETAMINES SCREEN NEGATIVE; URINE BARBITURATES SCREEN NEGATIVE; URINE BENZODIAZEPINES SCREEN NEGATIVE; URINE COCAINE SCREEN NEGATIVE; URINE MARIJUANA (THC) SCREEN NEGATIVE; URINE METHADONE SCREEN NEGATIVE; URINE PHENCYCLIDINE SCREEN NEGATIVE
[2019-12-24 20:44] LABS: CHLAM PCR NOT DETECTED (NOT DETECT)
== END 2019-12-24 20:53 | disposition home or self-care (01) ==
LOC: LC 18:29
PROVIDERS: ATTEND Obstetrics & Gynecology Gynecology
DX: O26.899 Other specified pregnancy related conditions, unspecified trimester (principal); R10.30 Lower abdominal pain, unspecified; Z3A.22 22 weeks gestation of pregnancy
CPT/HCPCS: 59899; 87210; 81001; 80307; 87491; 87591; Q0114

== ENCOUNTER → 2020-01-09 | Outpatient (CLI) | payer SELFPAY ==
--- NOTE | 2020-01-09 14:53 | RADIOLOGY REPORT (SQ) ---
EXAM DESCRIPTION: U/S OB 14+ TRNABD 1GES W/O DOP IMAGES COMPLETED DATE/TIME: 01/09/2020 2:38 pm REASON FOR STUDY: Z34.82 ENCOUNTER FOR SUPRVSN OF NORMAL , SECOND TRIMESTER Z34.82 ENCOUNT ER FOR SUPRVSN OF NORMAL , SECOND TRI COMPARISON: None. TECHNIQUE: Static and Dynamic grayscale imaging performed of gravid uterus using transabdominal appr oach. Additional selected color Doppler and spectral images recorded. All stored on PACS. LIMITATIONS: None. FINDINGS: FETUSES SEEN:1 EGA: 20 week 5 day. Calculated using BPD,FL,HC,AC documented on images. No discrepancy with clinical dates. LACY: 05/23/2020. EFW: 341 grams PERCENTILE: Not applicable. LVP: 5.2 x 5.7 cm. PLACENTA: Anterior. PRESENTATION: Breech. ANATOMY: HEART RATE: 143 beats per minute. FOUR CHAMBER HEART: Visualized. THREE VESSEL CORD: Yes. CORD INSERTION: Visualized. KIDNEYS AND BLADDER: Visualized. Appear normal. STOMACH: Visualized. Appears normal. SPINE: Normal as visualized. BRAIN AND LATERAL VENTRICLES: Visualized. Appear normal. OTHER: No other significant finding. MATERNAL ADNEXA: Maternal ovaries not visualized. CERVICAL LENGTH: 3.1 cm. Closed. OTHER: No other significant finding. IMPRESSION: LIVING INTRAUTERINE . ESTIMATED GESTATIONAL AGE 20 WEEK 3 DAY. NO VISUALIZED ANOMALIES. Trimester of : Second trimester - 13 weeks 1 day to 27 weeks 6 days. TECHNICAL DOCUMENTATION: JOB ID: [id number] 2010 [email or web address]- All Rights Reserved Reading location - IP/workstation name: [email or web address]
== END ==
LOC: RAD 13:39
PROVIDERS: ATTEND Midwife
DX: Z34.82 Encounter for supervision of other normal pregnancy, second trimester (principal); Z3A.20 20 weeks gestation of pregnancy
CPT/HCPCS: 76805

== ENCOUNTER 2020-04-26 14:01 | Outpatient (CLI) | payer MEDICAID ==
[2020-04-26] MEDS ORDERED: HYDROXYZINE PAMOATE 50 MG CAPSULE PO ONE (14:57)
[2020-04-26] MEDS ORDERED: HYDROXYZINE PAMOATE 50 MG CAPSULE ONE (14:58)
[2020-04-26 15:15] LABS: AMORPHOUS SEDIMENT,URINE 1+ /HPF; APPEARANCE,URINE TURBID; BILIRUBIN,URINE NEGATIVE (NEGATIVE); COLOR,URINE AMBER; GLUCOSE, URINE NEGATIVE (NEGATIVE); KETONES,URINE NEGATIVE (NEGATIVE); LEUKOCYTE ESTERASE,URINE LARGE (NEGATIVE); NITRITE,URINE NEGATIVE (NEGATIVE); PROTEIN,URINE 30 mg/dL (NEGATIVE); URINE SPECIFIC GRAVITY 1.018
[2020-04-26 15:20] LABS: URINE AMPHETAMINES SCREEN NEGATIVE; URINE BARBITURATES SCREEN NEGATIVE; URINE BENZODIAZEPINES SCREEN NEGATIVE; URINE COCAINE SCREEN NEGATIVE; URINE MARIJUANA (THC) SCREEN NEGATIVE; URINE METHADONE SCREEN NEGATIVE; URINE PHENCYCLIDINE SCREEN NEGATIVE
--- NOTE | 2020-04-26 16:12 | Non Stress Test Report ---
Non Stress Test Datetime Report Generated by CPN: 04/26/2020 16:11 DEMOGRAPHIC Test Number: 1 EGA NST: 35.5 INDICATION Indication for Study (NST) Other: IUP at 35.5; Not in labor VITAL SIGNS Temperature - NST: 97.9 Pulse - NST: 120 RESP - NST: 20 NBPSYS NST: 106 NBPDIA NST: 61 MONITORING Monitor Explained: Monitor Explained; Test Explained; Patient Verbalized Understanding Time on Monitor: 04/26/2020 14:16 Time off Monitor: 04/26/2020 15:46 NST Duration: 90 NST INTERVENTIONS NST Interventions: PO Hydration Physician Notified NST: NCastillo Eduardoon, CNM BABY A: [id number] BABY A Movement : Present Contraction Frequency : Irreg FHR Baseline : 125 Accelerations : 15X15 Decelerations : None Variability : Moderate 6-25bpm NST Review: Meets Criteria for Reactive NST NST Review and Verified By : SAutry NST Results: Reactive NST REPORT Report Trigger: Send Report
== END 2020-04-26 15:57 | disposition home or self-care (01) ==
LOC: LC 14:01
PROVIDERS: ATTEND Obstetrics & Gynecology
DX: O47.03 False labor before 37 completed weeks of gestation, third trimester (principal); Z3A.35 35 weeks gestation of pregnancy
CPT/HCPCS: 59025; 81001; 80307; J3490

== ENCOUNTER 2020-04-28 16:15 | Inpatient (IN) | payer MEDICAID ==
--- NOTE | 2020-05-24 09:16 | Non Stress Test Report ---
Non Stress Test Datetime Report Generated by CPN: 05/24/2020 09:16 DEMOGRAPHIC EGA NST: 39.3 INDICATION Indication for Study (NST) Other: labor check URINE RESULTS Urine Protein, NST: Negative Urine Ketones - NST: Negative Urine Glucose - NST: Negative Urine Blood - NST: Negative MONITORING Monitor Explained: Monitor Explained; Test Explained; Patient Verbalized Understanding Time on Monitor: 05/22/2020 18:23 Time off Monitor: 05/22/2020 19:12 NST Duration: 49 NST INTERVENTIONS NST Interventions: PO Hydration; IV Fluids; Reposition Patient Physician Notified NST: Dr. Santiago BABY A: [id number] BABY A Movement : Present Contraction Frequency : 2-5 FHR Baseline : 130 Accelerations : 15X15 Decelerations : None Variability : Moderate 6-25bpm NST Review: Meets Criteria for Reactive NST NST Review and Verified By : Leo Saunders RN Results: Reactive NST REPORT Report Trigger: Send Report
[2020-05-24] MEDS ORDERED: RINGERS SOLUTION,LACTATED 1,000 ML IV PRN (09:28)
[2020-05-24] MEDS ORDERED: OXYTOCIN/0.9 % SODIUM CHLORIDE 30 UNIT/500 ML RTUINJ IV PRN ×4 (09:30→16:49)
[2020-05-24 09:53] LABS: APPEARANCE,URINE CLOUDY; BILIRUBIN,URINE NEGATIVE (NEGATIVE); COLOR,URINE YELLOW; GLUCOSE, URINE NEGATIVE (NEGATIVE); KETONES,URINE NEGATIVE (NEGATIVE); LEUKOCYTE ESTERASE,URINE LARGE (NEGATIVE); NITRITE,URINE NEGATIVE (NEGATIVE); PROTEIN,URINE NEGATIVE (NEGATIVE); URINE SPECIFIC GRAVITY 1.012; UROBILINOGEN,URINE NEGATIVE mg/dL (<2.0)
[2020-05-24 10:08] LABS: URINE AMPHETAMINES SCREEN NEGATIVE; URINE BARBITURATES SCREEN NEGATIVE; URINE BENZODIAZEPINES SCREEN NEGATIVE; URINE COCAINE SCREEN NEGATIVE; URINE MARIJUANA (THC) SCREEN NEGATIVE; URINE METHADONE SCREEN NEGATIVE; URINE PHENCYCLIDINE SCREEN NEGATIVE
[2020-05-24 10:14] LABS: ABSOLUTE BASOPHILS # (AUTO) 0.1 10^3/uL (0.0-0.2); ABSOLUTE EOSINOPHILS # (AUTO) 0.3 10^3/uL (0.0-0.6); ABSOLUTE LYMPHOCYTES (AUTO) 1.4 10^3/uL (0.5-4.7); ABSOLUTE MONOCYTES (AUTO) 0.7 10^3/uL (0.1-1.4); BASOPHILS % (AUTO) 0.5 % (0-2); EOSINOPHILS % (AUTO) 3.2 % (0-6); HEMOGLOBIN 9.2 g/dL (12.0-15.5); LYMPHOCYTES % (AUTO) 13.2 % (13-45); MEAN CORPUSCULAR HEMOGLOBIN 23.7 pg (27.0-33.4); MEAN CORPUSCULAR VOLUME 72 fl (80-97); MONOCYTES % (AUTO) 6.9 % (3-13); PLATELET COUNT 239 10^3/uL (150-450); RED CELL DISTRIBUTION WIDTH 16.4 % (11.5-14.0); SEGMENTED NEUTROPHILS % (AUTO) 76.2 % (42-78); TOTAL CELLS COUNTED % (AUTO) 100 %; WHITE BLOOD COUNT 10.6 10^3/uL (4.0-10.5)
[2020-05-24] MEDS ORDERED: EPHEDRINE SULFATE INJ 50 MG/1 ML AMPULE ONE (11:01)
[2020-05-24] MEDS ORDERED: ROPIVACAINE HCL 0.2% INJ/PF (2 MG/ML) 20 ML SDV ONE (11:02)
[2020-05-24] MEDS ORDERED: OXYTOCIN 10 UNIT/ML VIAL ONE (11:02)
[2020-05-24] MEDS ORDERED: FENTANYL/BUPIVACAINE/NS/PF 300 MCG/150 ML RTUINJ EPI ONE (11:02)
[2020-05-24] MEDS ORDERED: LIDOCAINE 1% INJ-PF (10 MG/ML) 30 ML SDV ONE (11:02)
[2020-05-24] MEDS ORDERED: MISOPROSTOL 0.2 MG TABLET ONE (11:02)
[2020-05-24] MEDS ORDERED: OXYTOCIN/0.9 % SODIUM CHLORIDE 30 UNIT/500 ML RTUINJ ONE (11:03)
--- NOTE | 2020-05-24 14:00 | Admission Physical ---
Datetime Report Generated by CPN: 05/24/2020 13:59 CURRENT ADMISSION Chief Complaint: Scheduled Induction of Labor Indication for Induction: Not Applicable Admit Impression : Term, Intrauterine ; No Active Labor Admit Plan: Admit to Unit; Initiate Labor Induction Protocol ALLERGIES Medication Allergies: No Medication Allergies: No Known Allergies (05/24/2020) Latex: No Latex Allergies Food Allergies: hot sauce Environmental Allergies: seasonal OBSTETRICAL HISTORY EDC: 05/26/2020 00:00 : 4 Para: 3 Term: 3 : 0 SAB: 0 IAB: 0 Ectopic: 0 Livin Cesareans: 0 VBACs: 0 Multiple Births: 0 Gestational Diabetes: No Rh Sensitization: No Incompetent Cervix: No QIANA: No Infertility: No ART Treatment: No Uterine Anomaly: No IUGR: No Hx Previous C/S: No Macrosomia: Yes Hx Loss/Stillborn: No PIH: No Hx : No Placenta Previa/Abruption: No Depression/PP Depression: No PTL/PROM: No Post Hemorrhage: No Current Procedures: Ultrasound Obstetrical History Comments: 2009 9 # 5 oz G2- 2010 7#14 oz G3- 2011 8#2 G4- current SEE RECORDS Alcohol: No Marijuana : No Cocaine: No Other Illicit Drugs: No Cigarettes: Never Smoker. 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 Heart Disease: No Hosp/Surgery: Yes Autoimmune Disorder: No Anesthetic Complications: No Kidney Disease: No Abnormal Pap Smear: Yes Neuro/Epilepsy: No Psychiatric Disorders: No Other Medical Diseases: No Hepatitis/Liver Disease: No Significant Family History: No Varicosities/Phlebitis: No Trauma/Violence : No Thyroid Dysfunction: No Medical History Comments: ASCUS pap needs colpo pp, childbirth X3, viral meningitis, hx MRSA with G1 per [facility] records- pt states she doesnt know where, hx chlamydia 2010, tonsillectomy, lasik INFECTIOUS HISTORY Gonorrhea: No Genital Herpes: No Chlamydia: No Tuberculosis: No Syphilis: No Hepatitis: No HIV/AIDS Exposure: No Rash or Viral Illness: No HPV: Yes Infectious History Comments: hx chlamydia- 2010 not this , abnormal pap 2020 + HPV PHYSICAL EXAM General: Normal HEENT: Normal Neurologic: Normal Thyroid: Deferred Heart: Normal Lungs: Normal Breast: Deferred Back: Normal Abdomen: Normal Genitourinary Exam: Normal Extremities: Normal DTRs: Deferred Pelvic Type: Adequate Physical Exam Comments: pelvis proven to 9#6 Vital Signs: Reviewed; Within Normal Limits VAGINAL EXAM Dilatation: 5 Effacement: thick Station: -2 Contraction Comments: q3 mins MEMBRANES Pooling: Positive Membranes: Ruptured Amniotic Fluid Color: Clear FETUS A EGA: 39.5 Monitoring: External US FHR- Baseline: 110 Variability: Moderate 6-25bpm Accelerations: 15X15 Decelerations: None FHR Category: Category I FHR Comments: AROM at 1200 today Estimated Weight (gm): 3700 Presentation: Vertex Admit Comment: at 39w5d for elective IOL, now on pitocin. P: cont pitocin IOL, anticipate PLANS FOR LABOR AND DELIVERY Labor and Delivery: None Pain Management: None Feeding Preference: Formula Circumcision: Yes INFORMED CONSENT Assignment: Kassy Borrero MD Signature: with User ID: [email or web address] : with User ID: [email or web address]
[2020-05-24] MEDS ORDERED: BENZOCAINE/MENTHOL AEROSOL SPRAY 56 ML TOP PRN (16:49)
[2020-05-24] MEDS ORDERED: GLYCERIN/WITCH HAZEL LEAF 1 EACH MED..WIPE TP PRN (16:49)
[2020-05-24] MEDS ORDERED: DIPH/PERTUSS(ACELL)/TETANUS VAC/PF 0.5 ML SYR (>=10YO) IM PRN (16:49)
[2020-05-24] MEDS ORDERED: PROMETHAZINE HCL 25 MG SUPP.RECT PR PRN (16:49)
[2020-05-24] MEDS ORDERED: PROMETHAZINE HCL 25 MG TABLET PO PRN (16:49)
[2020-05-24] MEDS ORDERED: NA PHOS,M-B/NA PHOS,DI-BA (ADULT) 133 ML ENEMA PR PRN (16:49)
[2020-05-24] MEDS ORDERED: PROMETHAZINE HCL INJ 25 MG/1 ML VIAL IV PRN (16:49)
[2020-05-24] MEDS ORDERED: ACETAMINOPHEN WITH CODEINE #3 TABLET PO PRN ×2 (16:49)
[2020-05-24] MEDS ORDERED: ACETAMINOPHEN 325 MG TABLET PO PRN (16:49)
[2020-05-24] MEDS ORDERED: MEASLES,MUMPS&RUBELLA VACC/PF 0.5 ML VIAL SUBCUT PRN (16:49)
[2020-05-24] MEDS ORDERED: DIBUCAINE 1% OINTMENT 28 GM TP PRN (16:49)
[2020-05-24] MEDS ORDERED: ZOLPIDEM TARTRATE 5 MG TABLET PO PRN (16:49)
[2020-05-24] MEDS ORDERED: DIPHENHYDRAMINE HCL 25 MG CAPSULE PO PRN (16:49)
[2020-05-24] MEDS ORDERED: MAGNESIUM HYDROXIDE SUSP 30 ML UDCUP PO PRN (16:49)
[2020-05-24] MEDS ORDERED: PSEUDOEPHEDRINE HCL 30 MG TABLET PO PRN (16:49)
[2020-05-24] MEDS ORDERED: IBUPROFEN 800 MG TABLET ONE (17:55)
[2020-05-24] MEDS: IBUPROFEN 800 MG TABLET PO SCH (17:59)
--- NOTE | 2020-05-24 18:26 | Birth Certificate Data ---
Cert Data Datetime Report Generated by [employer]: 05/24/2020 18:25 CERTIFICATE DATA 47a. Care: Yes (12/24/2019 18:46:Sarah Paez RN) 47b. Date of First Visit: 11/27/2019 00:00 (12/24/2019 18:46:Precious Erickson RN) 47c. Date of Last Visit: 05/18/2020 00:00 (12/24/2019 18:46:Sarah Paez RN) 47d. Number of Visits: 9 (12/24/2019 18:46:Sarah Paez RN) 48a. Number of Prev Live Births: 3 (12/24/2019 18:46:Nia Mcconnell RN) 48b. Now Livin (12/24/2019 18:46:Nia Mcconnell RN) 48c. Live Births Now : 0 (12/24/2019 18:46:QS system process) 48d. Date of Last Live : 06/03/2012 00:00 (12/24/2019 18:46:Nia Mcconnell RN) 48e. Losses: 0 (12/24/2019 18:46:Nia Mcconnell RN) RISK FACTORS IN THIS 49a. Diabetes: No (12/24/2019 18:46:Laya Cobb RN) 49b. Hypertension: No (12/24/2019 18:46:Laya Cobb RN) 49c. Previous Births: 0 (12/24/2019 18:46:Nia Mcconnell RN) 49d. Stillborns: No (12/24/2019 18:46:Laya Cobb RN) 49d. IUGR: No (12/24/2019 18:46:Laya Cobb RN) 49e. Infertility Treatment: No (12/24/2019 18:46:Laya Cobb RN) 49f. Previous Cesareans: 0 (12/24/2019 18:46:Nia Mcconnell RN) Mother's Height 50b. Height Inches: 62 (05/24/2020 09:33:QS system process) Mother's Weight 51a. Pre- Weight (lbs): 170 (12/24/2019 18:46:Nia Mcconnell RN) 51b. Weight at Delivery (lbs): 213 (05/24/2020 09:33:QS system process) 52. Dt Last Normal Menses Began: 08/02/2019 00:00 (12/24/2019 18:46:Nia Mcconnell RN) Infections Present/Treated 53a. Gonorrhea: No (12/24/2019 18:46:Laya Cobb RN) Results this Hospital Visit : Negative (12/24/2019 18:46:Nia Mcconnell RN) 53b. Syphilis: No (12/24/2019 18:46:Laya Cobb RN) Results this Hospital Visit: NONREACTIVE (05/08/2020 21:27:QS system process) 53c. Chlamydia: No (12/24/2019 18:46:Laya Cobb RN) Results this Hospital Visit: Negative (12/24/2019 18:46:Nia Mcconnell RN) 53d. Hepatitis B: No (12/24/2019 18:46:Laya Cobb RN) Results this Hospital Visit: Negative (12/24/2019 18:46:Nia Mcconnell RN) 53e. Hepatitis C: Negative (12/24/2019 18:46:Nia Mcconnell RN) 53h. Mother Tested for HBsAG: Yes (12/24/2019 18:46:Nia Mcconnell RN) 53i. Date Tested: 01/01/2020 00:00 (12/24/2019 18:46:Nia Mcconnell RN) 53j. Test Result: Negative (12/24/2019 18:46:Nia Mcconnell RN) Obstetric Procedures 54a, b, c. Obstetric Procedures: Ultrasound (12/24/2019 18:46:Laya Cobb RN) Cigarette Smoking Cigarette Smoking: Never Smoker. [id number] (12/24/2019 18:46:Laya Cobb RN) 55a. 3 Months Before Preg - Ci (12/24/2019 18:46:Laya Cobb RN) 55b. 1st Trimester of Preg- Ci (12/24/2019 18:46:Laya Cobb RN) 55c. 2nd Trimester of Preg- Ci (12/24/2019 18:46:Laya Cobb RN) 55d. 3rd Trimester of Preg- Ci (12/24/2019 18:46:Laya Cobb RN) Onset of Labor 56a. PROM >12 Hrs: 4.50 (05/24/2020 12:03:QS system process) 56b. Precipitous Labor <3 Hrs: 4 (05/24/2020 12:03:QS system process) 56c. Prolonged Labor > 20 Hrs: 4 (05/24/2020 12:03:QS system process) 57a. Induction of Labor: Augmentation (12/24/2019 18:46:Sarah Paez RN) 57c. Non-Vertex Presentation A: Vertex (12/24/2019 18:46:CARMEN Foss) 57d. Steroids - Lung Mat: None (12/24/2019 18:46:Sarah Paez RN) 57d. Steroids - Lung Mat: Not Applicable (12/24/2019 18:46:Sarah Paez RN) 57f. Mat [place] or Temp >100.4: 99.1 (12/24/2019 18:46:Sarah Paez RN) 57g. Moderate/Heavy Meconium: Clear (05/24/2020 12:03:Sarah Paez RN) 57i. Epidural/Spinal Anesthesia: Epidural (12/24/2019 18:46:Sarah Paez RN) Method of Delivery 58a. Forceps - Unsuccessful A: N/A (12/24/2019 18:46:Huma Nagy [facility]) 58b. Vacuum - Unsuccessful A: N/A (12/24/2019 18:46:Huma Nagy [facility]) 58c. Presentation at 58c. Presentation at - A : Vertex (12/24/2019 18:46:Huma Nagy [facility]) 58c. Presentation at - A : N/A (12/24/2019 18:46:[facility]) 58c. Presentation at - A : Cephalic (12/24/2019 18:46:[facility]) Final Route and Method of Del 58d. Baby A Route/Delivery: Vaginal (05/24/2020 16:33:Sarah Paez RN) 58e. Trial of Labor Attempted: No (12/24/2019 18:46:Sarah Paez RN) 58e. Trial of Labor Attempted A: N/A (12/24/2019 18:46:Sarah Paez RN) 58e. Trial of Labor Attempted B: N/A (12/24/2019 18:46:Sarah Paez RN) Maternal Morbidity 59b. 3rd or 4th Degree Lacs: None (12/24/2019 18:46:Izzy العراقي CNM ) Birthweight Baby A: 3794 (12/24/2019 18:46:Sarah Sales, RN) 60a. Pounds : 8 (12/24/2019 18:46:QS system process) 60b. Ounces: 6 (12/24/2019 18:46:QS system process) 61. GA at Delivery Baby A: 39.5 (12/24/2019 18:46:Sarah Sales, RN) : Full Term- 39- 40.6 Weeks (12/24/2019 18:46:QS system process) 62a. 5 Minute Baby A: 9 (12/24/2019 18:46:QS system process)
--- NOTE | 2020-05-24 18:26 | Delivery Summary ---
Del Sum A-C Datetime Report Generated by CPN: 05/24/2020 18:25 DELIVERY PERSONNEL DELIVERY PERSONNEL: [id number] Delivery Doctor:: Izzy العراقي CNM Labor and Delivery Nurse:: Sarah Paez RN Nursery Nurse:: Kaya Monroe RN Crtt/PRODUCTION FOREMAN: Dennise Wallis, LUMBER TAILER MATERNAL INFORMATION Delivery Anesthesia: Epidural Medications After Delivery: Pitocin 10 Units IM; Pitocin Bolus-Please Comment; Pitocin 30 Units in 500ml NS/D5W Delivery QBL: 100 Maternal Complications: None Complication Details: Provider Comments: SPONTANEOUS DELIVERY OF VIABLE BABY BOY WITH SPONTANEOUS CRY. WITH DELIVERY OF HEAD, TURTLE SIGN NOTED. SHOULDERS DELIVERED WITH THE ONLY HELP OF BRINGING DOEN THE HEAD OF BED AND MOVING LEGS BACK. APPROX 10 SEC FROM HEAD TO BODY. CORD DOUBLE CLAMPED AND CUT. SPONTANEOUS INTACT PLACENTA WITH 3VC. NURSERY RN IN ROOM FOR DELIVERY. MOTHER AND INFANT STABLE IN L_D#4. LABOR SUMMARY EDC: 05/26/2020 00:00 No. Babies in Womb: 1 Attempted: No Labor Anesthesia: Epidural LABOR INFORMATION Reason for Induction: Other Reason for Induction- Other: Elective Onset of Labor: 05/24/2020 12:03 Complete Dilatation: 05/24/2020 16:22 Oxytocin: Augmentation Group B Beta Strep: negative Name of Antibiotic Given: NA Steroids Given: None Reason Steroids Not Administered: Not Applicable MEMBRANES Membranes Rupture Method: Artificial Rupture of Membranes: 05/24/2020 12:03 Length of Rupture (hr): 4.50 Amniotic Fluid Color: Clear Amniotic Fluid Amount: Moderate Amniotic Fluid Odor: Normal STAGES OF LABOR Stage 1 hr: 4 Stage 1 min: 19 Stage 2 hr: 0 Stage 2 min: 11 Stage 3 hr: 0 Stage 3 min: 6 Total Time in Labor hr: 4 Total Time in Labor min: 36 VAGINAL DELIVERY Episiotomy: None Laceration #1: None Laceration Extension #1: N/A Laceration Repair: Not Applicable Sharps Count Correct: N/A BABY A INFORMATION Delivery Date/Time: 05/24/2020 16:33 Method of Delivery: Vaginal Nurse Controlled Delivery: No Born in Route : No : N/A Forceps: N/A Vacuum Extraction: N/A Shoulder Dystocia : No PRESENTATION/POSITION BABY A Presentation: Cephalic Cephalic Presentation: Vertex Vertex Position: Left Occipital Anterior Breech Presentation: N/A PLACENTA INFORMATION BABY A Placenta Delivery Time : 05/24/2020 16:39 Placenta Method of Delivery: Spontaneous Placenta Status: Delivered SCORES BABY A Heart Rate 1 min: >100 bpm Resp Effort 1 min: Good Cry Reflex Irritability 1 min: Cough or Sneeze or Pulls Away Muscle Tone 1 min: Active Motion Color 1 min: Blue/Pale Resuscitation Effort 1 min: Tactile Stimulation SCORE 1 MIN: 8 Heart Rate 5 min: >100 bpm Resp Effort 5 min: Good Cry Reflex Irritability 5 min: Cough or Sneeze or Pulls Away Muscle Tone 5 min: Active Motion Color 5 min: Body [place], Extremities Blue Resuscitation Effort 5 min: Tactile Stimulation SCORE 5 MIN: 9 INFANT INFORMATION BABY A Gestational Age at Delivery: 39.5 Gestational Status: Full Term- 39- 40.6 Weeks Infant Condition : Stable Sex: Male IDENTIFICATION BABY A Verification Date/Time: 05/24/2020 18:00 ID Band Number: [id number] Mother's Name Verified: Yes RN Verifying Infant: Tiara Paez GM Additional Verifying Personnel: Miguel Mnoroe RN WEIGHT/LENGTH BABY A Infant Birthweight (gm): 3794 Infant Weight (lb): 8 Infant Weight (oz): 6 Infant Length (in): 20.00 Length (cm): 50.80 CORD INFORMATION BABY A No. Cord Vessels: 3 Nuchal Cord : N/A Cord Blood Taken: Yes-For Eval (Mom's Blood Type - or O+) Infant Suction: Mouth; Nose ASSESSMENT BABY A Complications: Shoulder Dystocia Physical Findings at Delivery: Within Normal Limits; Molding of the Head Respirations: Appears Normal Medical Billing Clerk/ALS Called : No Care By: kaya alvarado RN Transferred To: Remains with Mother BABY B INFORMATION : N/A SIGNATURES Assignment: Kassy Borrero MD Signature: with User ID: [email or web address] : with User ID: [email or web address] : I was personally available for consultation and serving as supervising physician for the MLP.
[2020-05-24] MEDS: DOCUSATE SODIUM 100 MG CAPSULE PO SCH (21:30)
[2020-05-24] MEDS: FERROUS SULFATE 325 MG TABLET PO SCH (21:30)
[2020-05-24] MEDS: FAMOTIDINE 20 MG TABLET PO SCH (21:30)
[2020-05-25] MEDS: IBUPROFEN 800 MG TABLET PO SCH ×3 (01:01→17:16)
[2020-05-25 07:07] LABS: MEAN CORPUSCULAR HEMOGLOBIN 23.7 pg (27.0-33.4); MEAN CORPUSCULAR HGB CONC 33.5 g/dL (32.0-36.0); MEAN CORPUSCULAR VOLUME 71 fl (80-97); PLATELET COUNT 258 10^3/uL (150-450); RED BLOOD COUNT 3.81 10^6/uL (3.72-5.28); RED CELL DISTRIBUTION WIDTH 16.2 % (11.5-14.0); WHITE BLOOD COUNT 13.3 10^3/uL (4.0-10.5)
[2020-05-25] MEDS: DOCUSATE SODIUM 100 MG CAPSULE PO SCH ×2 (09:15→17:16)
[2020-05-25] MEDS: FAMOTIDINE 20 MG TABLET PO SCH ×2 (09:15→22:16)
[2020-05-25] MEDS: FERROUS SULFATE 325 MG TABLET PO SCH ×2 (09:16→17:16)
[2020-05-25] MEDS: SENNOSIDES/DOCUSATE 8.6-50 MG 1 EACH TABLET PO SCH (09:16)
[2020-05-25] MEDS: PRENATAL VITAMIN W DHA CAPSULE PO SCH (09:16)
--- NOTE | 2020-05-25 09:36 | PDOC PROGRESS REPORT ---
Subjective-OB Progress Note for:: 05/25/20 Subjective: Doing well, no c/o, fob at BS, bottl feeding, mod bleeding Physical Exam (OB) Vital Signs: Temp Pulse Resp BP Pulse Ox 97.6 F 77 16 120/69 99 05/25/20 08:05 05/25/20 08:05 05/25/20 08:05 05/25/20 08:05 05/25/20 08:05 Intake & Output 05/24/20 05/25/20 05/26/20 06:59 06:59 06:59 Intake Total 700 Output Total 500 Balance 200 Weight 97.3 kg - PIH/Pre-Eclampsia DTR's: 2 + Clonus: Negative Headache: Absent Epigastric Pain: No Visual Changes: No - Maternal Morbidity 59. Maternal Morbidity (serious complications experinced by the mother associated with labor and delivery: None of the above - Lochia Lochia Amount: Scant < 10 ml Lochia Color: Rubra/Red - Abdomen Description: Soft Hernia Present: No Fundal Description: Firm, Midline Fundal Height: u/u - u/2 Objective-Diagnostic Laboratory: 05/25/20 06:52 05/24/20 05/24/20 05/24/20 09:15 09:48 09:48 WBC 10.6 H RBC 3.90 Hgb 9.2 L Hct 28.0 L MCV 72 L MCH 23.7 L MCHC 33.0 RDW 16.4 H Plt Count 239 Seg Neutrophils % 76.2 Urine Color YELLOW Urine Appearance CLOUDY Urine pH 7.0 Ur Specific [place] 1.012 Urine Protein NEGATIVE Urine Glucose (UA) NEGATIVE Urine Ketones NEGATIVE Urine Blood SMALL H Urine Nitrite NEGATIVE Ur Leukocyte Esterase LARGE H Urine WBC (Auto) 38 Urine RBC (Auto) 2 Blood Type O POSITIVE Antibody Screen NEGATIVE 05/25/20 06:52 WBC 13.3 H RBC 3.81 Hgb 9.0 L Hct 27.0 L MCV 71 L MCH 23.7 L MCHC 33.5 RDW 16.2 H Plt Count 258 Seg Neutrophils % Urine Color Urine Appearance Urine pH Ur Specific [place] Urine Protein Urine Glucose (UA) Urine Ketones Urine Blood Urine Nitrite Ur Leukocyte Esterase Urine WBC (Auto) Urine RBC (Auto) Blood Type Antibody Screen Assessment and Plan(PN) - Assessment and Plan (1) Spontaneous vaginal delivery Is this a current diagnosis for this admission?: Yes (2) Encounter for elective induction of labor Is this a current diagnosis for this admission?: Yes (3) False labor before 37 completed weeks of gestation Qualifiers: Trimester: third trimester Qualified Code(s): O47.03 - False labor before 37 completed weeks of gestation, third trimester Is this a current diagnosis for this admission?: Yes - Time Spent with Patient Time with patient: Less than 15 minutes Medications reviewed and adjusted accordingly: Yes - Disposition Anticipated Discharge Disposition: Home, Self Care Anticipated Discharge Timeframe: within 24 hours
[2020-05-26] MEDS: IBUPROFEN 800 MG TABLET PO SCH ×2 (01:47→10:10)
[2020-05-26 07:41] VITALS: BP 112/73
[2020-05-26] MEDS: FAMOTIDINE 20 MG TABLET PO SCH (10:10)
[2020-05-26] MEDS: SENNOSIDES/DOCUSATE 8.6-50 MG 1 EACH TABLET PO SCH (10:10)
[2020-05-26] MEDS: FERROUS SULFATE 325 MG TABLET PO SCH (10:10)
[2020-05-26] MEDS: DOCUSATE SODIUM 100 MG CAPSULE PO SCH (10:10)
[2020-05-26] MEDS: PRENATAL VITAMIN W DHA CAPSULE PO SCH (10:10)
--- NOTE | 2020-05-26 14:24 | PDOC DISCHARGE SUMMARY ---
Impression - Admit/DC Date/PCP Admission Date/Primary Care Provider: 05/24/20 09:04 BERENICE ROWLAND MD Discharge Date: 05/26/20 - Discharge Diagnosis (1) Anemia complicating , third trimester Is this a current diagnosis for this admission?: Yes (2) Encounter for elective induction of labor Is this a current diagnosis for this admission?: Yes (3) Spontaneous vaginal delivery Is this a current diagnosis for this admission?: Yes - Assessment Summary: 24yo s/p ppd2 -- stable and ready for discharge, understands warning s/s and reasons to rtc/[facility]. Pt asked questions and verbalized understanding - Additional Information Resuscitation Status: Full Code Discharge Diet: As Tolerated, Regular Discharge Activity: Activity As Tolerated, Balance Activity w/Rest, No Lifting Over 10 Pounds, No Lifting/Push/Pulling, Pelvic Rest, No tub bath, Walk Frequently Referrals: BERENICE ROWLAND MD [Primary Care Provider] - Prescriptions: Ibuprofen [Motrin 800 mg Tablet] 800 mg PO Q8HP PRN #30 tablet PRN Reason: For Pain Scale 1-3 Docusate Sodium [Colace 100 mg Capsule] 100 mg PO BID #60 capsule Ferrous Sulfate [Feosol 325 mg Tablet] 325 mg PO BID #60 tablet Home Medications: Pnv 102/Iron/Folate 1/Dss/Dha [Vitafol Fe+ Docusate Combo Pck] 1 each PO DAILY 04/26/20 Docusate Sodium [Colace 100 mg Capsule] 100 mg PO BID #60 capsule 05/26/20 Ferrous Sulfate [Feosol 325 mg Tablet] 325 mg PO BID #60 tablet 05/26/20 Ibuprofen [Motrin 800 mg Tablet] 800 mg PO Q8HP PRN #30 tablet 05/26/20 Hospital Course 59. Maternal Morbidity (serious complications experinced by the mother associated with labor and delivery: None of the above Results Laboratory Results: WBC 13.3 10^3/uL (4.0-10.5) H 05/25/20 06:52 RBC 3.81 10^6/uL (3.72-5.28) 05/25/20 06:52 Hgb 9.0 g/dL (12.0-15.5) L 05/25/20 06:52 Hct 27.0 % (36.0-47.0) L 05/25/20 06:52 MCV 71 fl (80-97) L 05/25/20 06:52 MCH 23.7 pg (27.0-33.4) L 05/25/20 06:52 MCHC 33.5 g/dL (32.0-36.0) 05/25/20 06:52 RDW 16.2 % (11.5-14.0) H 05/25/20 06:52 Plt Count 258 10^3/uL (150-450) 05/25/20 06:52 Lymph % (Auto) 13.2 % (13-45) 05/24/20 09:48 Sac % (Auto) 6.9 % (3-13) 05/24/20 09:48 Eos % (Auto) 3.2 % (0-6) 05/24/20 09:48 Baso % (Auto) 0.5 % (0-2) 05/24/20 09:48 Absolute Neuts (auto) 8.0 10^3/uL (1.7-8.2) 05/24/20 09:48 Absolute Lymphs (auto) 1.4 10^3/uL (0.5-4.7) 05/24/20 09:48 Absolute Monos (auto) 0.7 10^3/uL (0.1-1.4) 05/24/20 09:48 Absolute Eos (auto) 0.3 10^3/uL (0.0-0.6) 05/24/20 09:48 Absolute Basos (auto) 0.1 10^3/uL (0.0-0.2) 05/24/20 09:48 Seg Neutrophils % 76.2 % (42-78) 05/24/20 09:48 Urine Color YELLOW 05/24/20 09:15 Urine Appearance CLOUDY 05/24/20 09:15 Urine pH 7.0 (5.0-9.0) 05/24/20 09:15 Ur Specific Branch 1.012 05/24/20 09:15 Urine Protein NEGATIVE mg/dL (NEGATIVE) 05/24/20 09:15 Urine Glucose (UA) NEGATIVE mg/dL (NEGATIVE) 05/24/20 09:15 Urine Ketones NEGATIVE mg/dL (NEGATIVE) 05/24/20 09:15 Urine Blood SMALL (NEGATIVE) H 05/24/20 09:15 Urine Nitrite NEGATIVE (NEGATIVE) 05/24/20 09:15 Urine Bilirubin NEGATIVE (NEGATIVE) 05/24/20 09:15 Urine Urobilinogen NEGATIVE mg/dL (<2.0) 05/24/20 09:15 Ur Leukocyte Esterase LARGE (NEGATIVE) H 05/24/20 09:15 Urine WBC (Auto) 38 /HPF 05/24/20 09:15 Urine RBC (Auto) 2 /HPF 05/24/20 09:15 Urine Bacteria (Auto) TRACE /HPF 05/24/20 09:15 Squamous Epi Cells Auto 27 /HPF 05/24/20 09:15 Urine Mucus (Auto) RARE /LPF 05/24/20 09:15 Urine Ascorbic Acid NEGATIVE (NEGATIVE) 05/24/20 09:15 Urine Opiates Screen NEGATIVE 05/24/20 09:15 Urine Methadone Screen NEGATIVE 05/24/20 09:15 Ur Barbiturates Screen NEGATIVE 05/24/20 09:15 Ur Phencyclidine Scrn NEGATIVE 05/24/20 09:15 Ur Amphetamines Screen NEGATIVE 05/24/20 09:15 U Benzodiazepines Scrn NEGATIVE 05/24/20 09:15 Urine Cocaine Screen NEGATIVE 05/24/20 09:15 U Marijuana (THC) Screen NEGATIVE 05/24/20 09:15 RPR NONREACTIVE (NONREACTIVE) 05/24/20 09:48 Blood Type O POSITIVE 05/24/20 09:48 Antibody Screen NEGATIVE 05/24/20 09:48
== END 2020-05-26 15:16 | disposition home or self-care (01) | DRG 807 ==
LOC: LR 05-24 09:04 → 2S 05-24 18:55
PROVIDERS: ADMIT Obstetrics & Gynecology; ATTEND Obstetrics & Gynecology
PROC: 10E0XZZ Delivery of Products of Conception, External Approach (ICD-10-PCS; principal; 2020-05-24)
PROC: 10907ZC Drainage of Amniotic Fluid, Therapeutic from Products of Conception, Via Natural or Artificial Opening (ICD-10-PCS; 2020-05-24)
DX: O99.02 Anemia complicating childbirth (principal); Z37.0 Single live birth; D64.9 Anemia, unspecified; Z20.828 Contact with and (suspected) exposure to other viral communicable diseases; Z3A.39 39 weeks gestation of pregnancy; Z91.048 Other nonmedicinal substance allergy status
CPT/HCPCS: 1967; 36415; 80307; 81001; 85025; 85027; 86592; 86850; 86900; 86901; 94760; J2590; J2795; J3010; J3490

== ENCOUNTER 2020-05-08 16:44 | Outpatient (CLI) | payer MEDICAID ==
[2020-05-08 17:47] LABS: APPEARANCE,URINE SLIGHTLY-CLOUDY; BILIRUBIN,URINE NEGATIVE (NEGATIVE); COLOR,URINE YELLOW; GLUCOSE, URINE NEGATIVE (NEGATIVE); KETONES,URINE NEGATIVE (NEGATIVE); LEUKOCYTE ESTERASE,URINE MODERATE (NEGATIVE); NITRITE,URINE NEGATIVE (NEGATIVE); PROTEIN,URINE NEGATIVE (NEGATIVE); URINE SPECIFIC GRAVITY 1.017
[2020-05-08 18:09] LABS: URINE AMPHETAMINES SCREEN NEGATIVE; URINE BARBITURATES SCREEN NEGATIVE; URINE BENZODIAZEPINES SCREEN NEGATIVE; URINE COCAINE SCREEN NEGATIVE; URINE MARIJUANA (THC) SCREEN NEGATIVE; URINE METHADONE SCREEN NEGATIVE; URINE PHENCYCLIDINE SCREEN NEGATIVE
--- NOTE | 2020-05-08 18:23 | Non Stress Test Report ---
Non Stress Test Datetime Report Generated by CPN: 05/08/2020 18:23 DEMOGRAPHIC Test Number: 2 EGA NST: 37.3 INDICATION Indication for Study (NST) Other: LC- ctxs VITAL SIGNS Temperature - NST: 98.8 Pulse - NST: 103 RESP - NST: 15 NBPSYS NST: 131 NBPDIA NST: 62 MONITORING Monitor Explained: Monitor Explained; Test Explained; Patient Verbalized Understanding Time on Monitor: 05/08/2020 17:18 Time off Monitor: 05/08/2020 18:06 NST Duration: 48 NST INTERVENTIONS NST Interventions: None Physician Notified NST: Dr Carias BABY A: [id number] BABY A Movement : Present Contraction Frequency : 6-8 FHR Baseline : 125 Accelerations : 15X15 Decelerations : None Variability : Moderate 6-25bpm NST Review: Meets Criteria for Reactive NST NST Review and Verified By : GM Mckay NST Results: Reactive NST REPORT Report Trigger: Send Report
[2020-05-08] MEDS ORDERED: RINGERS SOLUTION,LACTATED 1,000 ML IV ONE (21:13)
[2020-05-08] MEDS ORDERED: RINGERS SOLUTION,LACTATED 1,000 ML IV PRN (21:13)
[2020-05-08] MEDS ORDERED: MISOPROSTOL 0.2 MG TABLET ONE (21:20)
[2020-05-08] MEDS ORDERED: LIDOCAINE 1% INJ-PF (10 MG/ML) 30 ML SDV ONE (21:20)
[2020-05-08] MEDS ORDERED: OXYTOCIN 10 UNIT/ML VIAL ONE (21:20)
[2020-05-08] MEDS ORDERED: OXYTOCIN/0.9 % SODIUM CHLORIDE 0 UNIT/0 ML RTUINJ ONE (21:20)
[2020-05-08 21:41] LABS: ABSOLUTE EOSINOPHILS # (AUTO) 0.3 10^3/uL (0.0-0.6); ABSOLUTE LYMPHOCYTES (AUTO) 1.7 10^3/uL (0.5-4.7); ABSOLUTE MONOCYTES (AUTO) 0.9 10^3/uL (0.1-1.4); ABSOLUTE NEUT (AUTO) 10.5 10^3/uL (1.7-8.2); BASOPHILS % (AUTO) 0.3 % (0-2); HEMATOCRIT 28.7 % (36.0-47.0); HEMOGLOBIN 9.4 g/dL (12.0-15.5); LYMPHOCYTES % (AUTO) 12.9 % (13-45); MEAN CORPUSCULAR HEMOGLOBIN 23.9 pg (27.0-33.4); MEAN CORPUSCULAR HGB CONC 32.7 g/dL (32.0-36.0); MEAN CORPUSCULAR VOLUME 73 fl (80-97); PLATELET COUNT 220 10^3/uL (150-450); RED BLOOD COUNT 3.92 10^6/uL (3.72-5.28); RED CELL DISTRIBUTION WIDTH 15.5 % (11.5-14.0); SEGMENTED NEUTROPHILS % (AUTO) 77.8 % (42-78); TOTAL CELLS COUNTED % (AUTO) 100 %; WHITE BLOOD COUNT 13.5 10^3/uL (4.0-10.5)
--- NOTE | 2020-05-09 00:48 | Admission Physical ---
Datetime Report Generated by CPN: 05/09/2020 00:47 CURRENT ADMISSION Chief Complaint: Uterine Contractions Indication for Induction: Not Applicable Admit Impression : Term, Intrauterine Admit Plan: Initiate Labor Protocol ALLERGIES Medication Allergies: No Medication Allergies: No Known Allergies (05/08/2020) Latex: No Latex Allergies Food Allergies: hot sauce Environmental Allergies: seasonal OBSTETRICAL HISTORY EDC: 05/26/2020 00:00 : 4 Para: 3 Term: 3 : 0 SAB: 0 IAB: 0 Ectopic: 0 Livin Cesareans: 0 VBACs: 0 Multiple Births: 0 Gestational Diabetes: No Rh Sensitization: No Incompetent Cervix: No QIANA: No Infertility: No ART Treatment: No Uterine Anomaly: No IUGR: No Hx Previous C/S: No Macrosomia: Yes Hx Loss/Stillborn: No PIH: No Hx : No Placenta Previa/Abruption: No Depression/PP Depression: No PTL/PROM: No Post Hemorrhage: No Current Procedures: Ultrasound Obstetrical History Comments: [id number] 9 # 5 oz G2- 2010 7#14 oz G3- 2011 8#2 G4- current SEE RECORDS Alcohol: No Marijuana : No Cocaine: No Other Illicit Drugs: No Cigarettes: Never Smoker. 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 Heart Disease: No Hosp/Surgery: Yes Autoimmune Disorder: No Anesthetic Complications: No Kidney Disease: No Abnormal Pap Smear: Yes Neuro/Epilepsy: No Psychiatric Disorders: No Other Medical Diseases: No Hepatitis/Liver Disease: No Significant Family History: No Varicosities/Phlebitis: No Trauma/Violence : No Thyroid Dysfunction: No Medical History Comments: ASCUS pap needs colpo pp, childbirth, viral meningitis, hx MRSA with G1 per [facility] records- pt states she doesnt know where INFECTIOUS HISTORY Gonorrhea: No Genital Herpes: No Chlamydia: No Tuberculosis: No Syphilis: No Hepatitis: No HIV/AIDS Exposure: No Rash or Viral Illness: No HPV: Yes Infectious History Comments: hx chlamydia- not this , abnormal pap 2020 + HPV PHYSICAL EXAM General: Normal HEENT: Normal Neurologic: Normal Thyroid: Normal Heart: Normal Lungs: Normal Breast: Deferred Back: Normal Abdomen: Normal Genitourinary Exam: Normal Extremities: Normal DTRs: Normal Pelvic Type: Adequate FETUS A EGA: 37.4 PLANS FOR LABOR AND DELIVERY Labor and Delivery: None Pain Management: None Feeding Preference: Formula Circumcision: Yes INFORMED CONSENT Signature: with User ID: [email or web address]
[2020-05-09] MEDS ORDERED: HYDROXYZINE PAMOATE 50 MG CAPSULE PO ONE (01:32)
[2020-05-09] MEDS ORDERED: HYDROXYZINE PAMOATE 50 MG CAPSULE ONE (01:37)
--- NOTE | 2020-05-09 05:58 | PDOC DISCHARGE SUMMARY ---
Impression - Admit/DC Date/PCP Admission Date/Primary Care Provider: 05/08/20 21:13 JOELLEN PERRIN MD Discharge Date: 05/09/20 - Additional Information Resuscitation Status: Full Code Discharge Diet: As Tolerated Discharge Activity: Activity As Tolerated Referrals: JOELLEN PERRIN MD [Primary Care Provider] - Home Medications: Pnv 102/Iron/Folate 1/Dss/Dha [Vitafol Fe+ Docusate Combo Pck] 1 each PO DAILY 04/26/20 History of Present Illiness History of Present Illness: NICOLE ROMERO is a 24 year old female Physical Exam - Physical Exam Vital Signs: Intake & Output 05/07/20 05/08/20 05/09/20 06:59 06:59 06:59 Weight 96.2 kg Results Laboratory Results: WBC 13.5 10^3/uL (4.0-10.5) H 05/08/20 21: RBC 3.92 10^6/uL (3.72-5.28) 05/08/20 21: Hgb 9.4 g/dL (12.0-15.5) L 05/08/20 21: Hct 28.7 % (36.0-47.0) L 05/08/20 21: MCV 73 fl (80-97) L 05/08/20 21: MCH 23.9 pg (27.0-33.4) L 05/08/20 21: MCHC 32.7 g/dL (32.0-36.0) 05/08/20 21: RDW 15.5 % (11.5-14.0) H 05/08/20 21: Plt Count 220 10^3/uL (150-450) 05/08/20 21: Lymph % (Auto) 12.9 % (13-45) L 05/08/20 21: [place] % (Auto) 7.0 % (3-13) 05/08/20 21: Eos % (Auto) 2.0 % (0-6) 05/08/20 21: Baso % (Auto) 0.3 % (0-2) 05/08/20 21: Absolute Neuts (auto) 10.5 10^3/uL (1.7-8.2) H 05/08/20 21:27 Absolute Lymphs (auto) 1.7 10^3/uL (0.5-4.7) 05/08/20 21:27 Absolute Monos (auto) 0.9 10^3/uL (0.1-1.4) 05/08/20 21:27 Absolute Eos (auto) 0.3 10^3/uL (0.0-0.6) 05/08/20 21:27 Absolute Basos (auto) 0.0 10^3/uL (0.0-0.2) 05/08/20 21:27 Seg Neutrophils % 77.8 % (42-78) 05/08/20 21:27 Urine Color YELLOW 05/08/20 16:53 Urine Appearance SLIGHTLY-CLOUDY 05/08/20 16:53 Urine pH 7.0 (5.0-9.0) 05/08/20 16:53 Ur Specific [place] 1.017 05/08/20 16:53 Urine Protein NEGATIVE mg/dL (NEGATIVE) 05/08/20 16:53 Urine Glucose (UA) NEGATIVE mg/dL (NEGATIVE) 05/08/20 16:53 Urine Ketones NEGATIVE mg/dL (NEGATIVE) 05/08/20 16:53 Urine Blood NEGATIVE (NEGATIVE) 05/08/20 16:53 Urine Nitrite NEGATIVE (NEGATIVE) 05/08/20 16:53 Urine Bilirubin NEGATIVE (NEGATIVE) 05/08/20 16:53 Urine Urobilinogen 4.0 mg/dL (<2.0) H 05/08/20 16:53 Ur Leukocyte Esterase MODERATE (NEGATIVE) H 05/08/20 16:53 Urine Ascorbic Acid NEGATIVE (NEGATIVE) 05/08/20 16:53 Urine Opiates Screen NEGATIVE 05/08/20 16:53 Urine Methadone Screen NEGATIVE 05/08/20 16:53 Ur Barbiturates Screen NEGATIVE 05/08/20 16:53 Ur Phencyclidine Scrn NEGATIVE 05/08/20 16:53 Ur Amphetamines Screen NEGATIVE 05/08/20 16:53 U Benzodiazepines Scrn NEGATIVE 05/08/20 16:53 Urine Cocaine Screen NEGATIVE 05/08/20 16:53 U Marijuana (THC) Screen NEGATIVE 05/08/20 16:53 Blood Type O POSITIVE 05/08/20 21:27 Antibody Screen NEGATIVE 05/08/20 21:27 Stroke Is this a Stroke Patient?: No Acute Heart Failure Is this a Heart Failure Patient?: No
--- NOTE | 2020-05-09 06:40 | Non Stress Test Report ---
Non Stress Test Datetime Report Generated by CPN: 05/09/2020 06:39 DEMOGRAPHIC EGA NST: 37.4 INDICATION Indication for Study (NST) Other: labor check MONITORING Monitor Explained: Monitor Explained; Test Explained; Patient Verbalized Understanding Time on Monitor: 05/09/2020 01:56 Time off Monitor: 05/09/2020 02:22 NST Duration: 26 NST INTERVENTIONS NST Interventions: None Physician Notified NST: Dr. Carias BABY A Movement : Present Contraction Frequency : occasional FHR Baseline : 115 Accelerations : 15X15 Decelerations : None Variability : Moderate 6-25bpm NST Review: Questionable if Meets Criteria for Reactive NST NST Review: Meets Criteria for Reactive NST NST Review and Verified By : Leo Saunders RN Results: Reactive NST REPORT Report Trigger: Send Report
== END 2020-05-09 06:20 | disposition home or self-care (01) ==
LOC: LC 16:44 → LR 21:13 → UNDOADMIN 21:13 → LC 05-09 06:20 → UNDODISIN 05-09 06:20
PROVIDERS: ATTEND Obstetrics & Gynecology Gynecology
DX: O47.1 False labor at or after 37 completed weeks of gestation (principal); Z3A.37 37 weeks gestation of pregnancy
CPT/HCPCS: 59025; 86900; 86901; 36415; 86850; 85025; 81005; 86592; 80307; J3490; J2590

== ENCOUNTER 2020-05-22 16:17 | Outpatient (CLI) | payer MEDICAID ==
[2020-05-22 16:54] LABS: APPEARANCE,URINE CLOUDY; BILIRUBIN,URINE NEGATIVE (NEGATIVE); COLOR,URINE YELLOW; GLUCOSE, URINE NEGATIVE (NEGATIVE); KETONES,URINE NEGATIVE (NEGATIVE); LEUKOCYTE ESTERASE,URINE LARGE (NEGATIVE); NITRITE,URINE NEGATIVE (NEGATIVE); PROTEIN,URINE NEGATIVE (NEGATIVE); URINE SPECIFIC GRAVITY 1.025
[2020-05-22 17:11] LABS: URINE AMPHETAMINES SCREEN NEGATIVE; URINE BARBITURATES SCREEN NEGATIVE; URINE BENZODIAZEPINES SCREEN NEGATIVE; URINE COCAINE SCREEN NEGATIVE; URINE MARIJUANA (THC) SCREEN NEGATIVE; URINE METHADONE SCREEN NEGATIVE; URINE PHENCYCLIDINE SCREEN NEGATIVE
[2020-05-22] MEDS ORDERED: RINGERS SOLUTION,LACTATED 1,000 ML IV PRN (18:31)
[2020-05-22] MEDS ORDERED: PROMETHAZINE HCL INJ 25 MG/1 ML VIAL IV ONE (18:31)
[2020-05-22] MEDS ORDERED: MORPHINE SULFATE 10 MG/ML INJ IM ONE (18:31)
[2020-05-22] MEDS ORDERED: PROMETHAZINE HCL INJ 25 MG/1 ML VIAL ONE (18:33)
[2020-05-22] MEDS ORDERED: MORPHINE SULFATE 10 MG/ML INJ ONE (18:34)
== END 2020-05-22 21:33 | disposition home or self-care (01) ==
LOC: LC 16:17
PROVIDERS: ATTEND Obstetrics & Gynecology
DX: O47.1 False labor at or after 37 completed weeks of gestation (principal); Z3A.39 39 weeks gestation of pregnancy
CPT/HCPCS: 59025; 94760; 81005; 80307; 84112; J2270; J2550